=== PATIENT | male | born 1945 | race Caucasian/White ===

== ENCOUNTER 2023-12-11 14:55 | Inpatient (IN) | payer MEDICARE, BC, SELFPAY ==
[2023-12-11 15:18] VITALS: BP 87/49; PULSE 62; RESP 10; TEMP 36.4; O2SAT 99
--- NOTE | 2023-12-11 15:30 | DI.RAD_ITS ---
Exam(s) XR PELVIS AP EXAM: XR PELVIS AP CLINICAL HISTORY: not walking. TECHNIQUE: 2D digital imaging was performed. Single AP view. COMPARISON: No exams were available for comparison FINDINGS: BONES: No gross evidence of acute fracture. The femoral necks are not well profiled. No bony destru ctive lesion is seen. Enthesophytes are noted at the iliac wings. JOINTS: No dislocation present. No joint space narrowing is present. Bilateral acetabular spurring. SI joints and pubic symphysis are not widened. SOFT TISSUE: Prominent vascular calcifications. IMPRESSION: No acute abnormality. Femoral neck regions not well profiled bilaterally and fractures in these re gions are not excluded. DATA REPOSITORY: RADIATION DOSE DELIVERED:
--- NOTE | 2023-12-11 15:30 | DI.CT_ITS ---
Exam(s) CT HEAD WO EXAM: CT HEAD WO CLINICAL HISTORY: generalized weaknes. TECHNIQUE: Imaging Protocol: Axial computed tomography images with coronal and sagittal reformatted images were created and reviewed COMPARISON: CR XR CHEST 1V IN DI DEPT from 12/11/2023 FINDINGS: There are no skull fractures. Mucosal thickening noted in the left maxillary sinus and there is also a surgical defect in the medial wall of the left maxillary sinus. There is no evidence of intracranial hemorrhage, mass effect, or shift of midline structures. There are no extra-axial fluid collections. The ventricles are not enlarged or shifted and there is no blo od within the ventricular system nor within the basal cisterns. IMPRESSION: No acute intracranial findings on this noninfused CT scan of the brain. Left maxillary sinus disease as well as surgical defect noted in the medial wall the left maxillary s inus. Called by myself to ER physician. RADIATION DOSE DELIVERED: 692.4mGy.cm Total DLP DATA REPOSITORY: All CT scans at this facility are submitted to the National Radiology Data Registry (NRDR) Dose Index Registry (DIR) with the [employer] ([employer]). RADIATION OPTIMIZATION: All CT scans at this facility use at least one of these dose optimization te chniques: automated exposure control; mA and/or kV adjustment per patient size (includes targeted exa ms where dose is matched to clinical indication); or iterative reconstruction.
--- NOTE | 2023-12-11 15:30 | DI.RAD_ITS ---
Exam(s) XR CHEST 1V IN DI DEPT EXAM: XR CHEST 1V IN DI DEPT CLINICAL HISTORY: fatigue, weakness TECHNIQUE: 2D digital imaging was performed. COMPARISON: No exams were available for comparison FINDINGS: LUNGS: Prominent fibrotic changes. No gross evidence of focal infiltrate no pleural abnormality seen . HEART: Enlarged. Pacemaker. Status post CABG. AORTA: Normal diameter. BONES: The spine is obscured. Soft tissues: Unremarkable. IMPRESSION: No acute findings. Cardiomegaly and pulmonary fibrotic changes. DATA REPOSITORY: RADIATION DOSE DELIVERED:
[2023-12-11 16:02] LABS: Abs Immature Grans 0.04 10^3/uL (0.0-0.06); Absolute Basophil Count 0.02 10^3/uL (0.0-0.2); Absolute Eosinophil Count 0.05 10^3/uL (0.0-0.7); Absolute Lymphocyte Count 1.48 10^3/uL (1.2-3.4); Absolute Monocyte Count 0.53 10^3/uL (0.1-0.8); Absolute Neutrophil Count 6.19 10^3/uL (1.2-6.7); Basophils % 0.2 %; Eosinophils % 0.6 %; HCT 32.3 % (40.0-50.0); HGB 9.6 g/dL (13.5-17.5); Immature Grans % 0.5 %; Lymphocytes % 17.8 %; MCH 27.7 pg (27.0-33.0); MCHC 29.7 % (32.0-36.0); MCV 93 fL (80-95); MPV 10.5 fL (8.0-11.0); Monocytes % 6.4 %; Neutrophils % 74.5 %; Nucleated RBC 0.2 % (0.0-0.3); Platelet Count 228 10^3/uL (130-400); RBC 3.47 10^6/uL (4.36-5.78); RDW 19.7 % (11.8-14.1); RDW-SD 66.6 fL; WBC 8.31 10^3/uL (4.4-10.8)
[2023-12-11] MEDS: Normal Saline 1,000 ML 1000 ML IV (16:07)
[2023-12-11 16:16] LABS: INR 1.3 (0.9-1.1); PTT Activated 41.7 sec (23.6-32.8); Prothrombin Time 13.1 sec (9.1-11.1)
--- NOTE | 2023-12-11 16:19 | ED.GENADUL_ITS ---
Discharge Plan Disposition Patient Disposition: Admit to [facility] Condition: Stable Discharge Details Chief Complaint: GenMedical Clinical Impression: Dehydration Primary Care Provider: Unknown,Unknown ED Provider: Mendez Prescott Home Meds and New Rx's Prescriptions: No Action allopurinol 300 mg tablet 300 mg PO DAILY amlodipine 5 mg tablet 5 mg PO DAILY atorvastatin [Lipitor] 80 mg tablet 80 mg PO QHS bupropion HCl 100 mg tablet sustained-release 12 hr 200 mg PO DAILY carvedilol 25 mg tablet 25 mg PO BID Rx Instructions: must administer with a meal/food Eliquis 5 mg tablet 5 mg PO BID levothyroxine [Euthyrox] 200 mcg tablet 200 mcg PO DAILY levothyroxine [Euthyrox] 25 mcg tablet 25 mcg PO DAILY lorazepam [Ativan] 1 mg tablet 1 mg PO QHS losartan [Cozaar] 100 mg tablet 100 mg PO DAILY multivit with min-folic acid [One-A-Day Men's Pro Edge] 0.4 mg tablet See Rx Instructions PO .COMPLEX Rx Instructions: orally daily; nitroglycerin [Nitrostat] 0.4 mg tablet, sublingual 0.4 mg sublingual Q5-15M PRN Rx Instructions: do not exceed 3 doses per episode pantoprazole 40 mg tablet,delayed release (DR/EC) 80 mg PO DAILY prednisone 5 mg tablet 5 mg PO DIRECTED Rx Instructions: see taper instructions HPI General Date/Time Provider Initiated Documentation: 12/11/23 15:23 . HPI Narrative: 78-year-old male history of pancreatic cysts requiring pancreatic stenting most recently in September at [place] [facility], presents with decreased appetite, increased nausea evidence of dehydration, follow-up scan approxi-1 month ago showed stent functioning in normal position. Daughter has moved patient up here from [place] to live with her has noticed a functional decline not able to ambulate currently generally weak not taking p.o. Related Data Home Medications Medication Instructions Recorded Confirmed allopurinol 300 mg tablet 300 mg PO DAILY 12/11/23 12/11/23 amlodipine 5 mg tablet 5 mg PO DAILY 12/11/23 12/11/23 apixaban 5 mg tablet (Eliquis) 5 mg PO BID 12/11/23 12/11/23 atorvastatin 80 mg tablet (Lipitor) 80 mg PO QHS 12/11/23 12/11/23 bupropion HCl 100 mg tablet,12 hr 200 mg PO DAILY 12/11/23 12/11/23 sustained-release carvedilol 25 mg tablet 25 mg PO BID 12/11/23 12/11/23 levothyroxine 200 mcg tablet 200 mcg PO DAILY 12/11/23 12/11/23 (Euthyrox) levothyroxine 25 mcg tablet 25 mcg PO DAILY 12/11/23 12/11/23 (Euthyrox) lorazepam 1 mg tablet (Ativan) 1 mg PO QHS 12/11/23 12/11/23 losartan 100 mg tablet (Cozaar) 100 mg PO DAILY 12/11/23 12/11/23 multivitamin with minerals-folic See Rx Instructions PO .COMPLEX 12/11/23 12/11/23 acid 0.4 mg tablet (One-A-Day Men's Pro Edge) nitroglycerin 0.4 mg sublingual 0.4 mg sublingual Q5-15M PRN 12/11/23 12/11/23 tablet (Nitrostat) pantoprazole 40 mg tablet,delayed 80 mg PO DAILY 12/11/23 12/11/23 release prednisone 5 mg tablet 5 mg PO DIRECTED 12/11/23 12/11/23 Allergies Allergy/AdvReac Type Severity Reaction Status Date / Time No Known Allergies Allergy Unverified 12/11/23 15:23 General Stated Complaint: GenMedical MINA: 3 Review of Systems Narrative: Review of Systems Constitutional: Fatigue Eyes: negative ENT: negative Cardiovascular: negative Respiratory: negative Gastrointestinal: negative : negative Musculoskeletal: negative Skin: negative Neurologic: negative Psych: negative Exam Narrative Exam Narrative: Physical Examination General: alert, awake, cooperative HEENT: normocephalic, atraumatic; PERRL, EOM intact, conjunctival pallor; no nasal discharge; dry oral mucosa Neck: supple, trachea midline; full ROM Chest: normal to inspection Respiratory: normal respiratory effort, speaking in full sentences, clear to auscultation, no wheezing, rales or rhonchi Cardiac: regular rate, regular rhythm, S1S2 intact, no murmurs rubs or gallops GI: abdomen soft, non-tender, non-distended; no palpable mass or hep atosplenomegaly Skin: no lesions, rashes or trauma appreciated Neuro: AAOx3, normal speech, moving all extremities Extremities: No peripheral edema Psych: Appropriate mood and affect Course Vital Signs Vital signs: Vital Signs Temperature 36.4 C L 12/11/23 15:18 Pulse 62 12/11/23 15:18 Respiratory Rate 10 L 12/11/23 15:18 Blood Pressure 87/49 L 12/11/23 15:18 Pulse Oximetry 99 12/11/23 15:18 Temperature 36.4 C L 12/11/23 15:18 Temperature Source Oral 12/11/23 15:18 Pulse 62 12/11/23 15:18 Respiratory Rate 10 L 12/11/23 15:18 Blood Pressure 87/49 L 12/11/23 15:18 Blood Pressure Position Sitting 12/11/23 15:18 Pulse Oximetry 99 12/11/23 15:18 Oxygen Delivery Method Room Air 12/11/23 15:18 Oxygen Flow Rate 0 12/11/23 15:18 Pain Level 0 12/11/23 15:18 Lab/Test Results Lab/Test Results: Laboratory Tests Range/Units 12/11/23 15:54 WBC (4.4-10.8) 10^3/uL 8.31 RBC (4.36-5.78) 10^6/uL 3.47 L Hgb (13.5-17.5) g/dL 9.6 L Hct (40.0-50.0) % 32.3 L MCV (80-95) fL 93 MCH (27.0-33.0) pg 27.7 MCHC (32.0-36.0) % 29.7 L RDW (11.8-14.1) % 19.7 H Plt Count (130-400) 10^3/uL 228 MPV (8.0-11.0) fL 10.5 Immature Gran % % 0.5 Neutrophils % % 74.5 Lymphocytes % % 17.8 Monocytes % % 6.4 Eosinophils % % 0.6 Basophils % % 0.2 Nucleated RBC % (0.0-0.3) % 0.2 Absolute Neutrophils (1.2-6.7) 10^3/uL 6.19 Absolute Lymphocytes (1.2-3.4) 10^3/uL 1.48 Absolute Monocytes (0.1-0.8) 10^3/uL 0.53 Absolute Eosinophils (0.0-0.7) 10^3/uL 0.05 Absolute Basophils (0.0-0.2) 10^3/uL 0.02 Medical Decision Making 78-year-old male history of chronic pancreatic cyst, status post pancreatic stenting presents with decreased p.o. intake dehydration fatigue decreased ability to ambulate, was recently moved up here by daughter to live with her due to declining functional status, daughter has noticed even further decline since his arrival, not eating not ambulating. Patient alert oriented interactive moving all extremities without focal deficit, no external signs of trauma, abdomen soft nontender nondistended, afebrile, noted to be hypertense as low as the 70s systolic, dry oral mucosa poor skin turgor conjunctival pallor high clinical suspicion for dehydration versus anemia. Patient's daughter endorses that follow-up scan post repeat pancreatic stent placement in September was normal showing functional stent. Will obtain IV access will obtain basic labs, will provide fluid hydration antiemetics, patient may need transfusion based on examination, admission likely for hydration and potential rehabilitation placement. 19: 19 resting really no acute distress. Labs demonstrating a likely prerenal WILLIAM related to decreased p.o. intake, will continue with fluid hydration no signs of pulmonary edema, soft BPs ranging around 90 systolic likely hypovolemic in nature. CT head and x-ray pelvis unremarkable. Patient was admitted for close monitoring and rehydration Quality:SDOH Health Related Social Needs: No Data to Display PFSH All Active Problems (Updated 12/11/23 @ 19:19 by Mendez Prescott MD) Dehydration (Acute) Social History Smoking/Tobacco Use Status: Never Smoking risk assessment performed?: Yes Alcohol Intake: current Alcohol Intake frequency: holidays/special occasions only Substance use type: does not use
[2023-12-11 16:20] VITALS: RESP 13
[2023-12-11 16:39] LABS: ALT 31 U/L (16-63); AST 28 U/L (15-37); Alkaline Phosphatase 100 U/L (46-116); Anion Gap 12.5 mmol/L (3-11); BUN 76 mg/dL (7-18); Bilirubin, Total 0.54 mg/dL (0.2-1.0); CO2 21.5 mmol/L (21.0-32.0); Calcium 8.1 mg/dL (8.5-10.1); Chloride 98 mmol/L (98-107); Estimated GFR 14.35 (mL/min/1.73m2); Glucose 62 mg/dL (74-106); Magnesium 1.7 mg/dL (1.8-2.4); Potassium 4.2 mmol/L (3.5-5.1); Sodium 132 mmol/L (136-145); Total Protein 6.4 g/dL (6.4-8.2)
[2023-12-11 16:43] LABS: CREATININE 4.1 mg/dL (0.70-1.30)
[2023-12-11] MEDS: DEXTROSE 5%-0.9% SALINE 1,000 ML 50 ML IV (17:05)
[2023-12-11] MEDS: Normal Saline 500 ML 1000 ML IV ×2 (17:24→18:36)
[2023-12-11 19:42] LABS: Lipase 30 U/L (16-77)
--- NOTE | 2023-12-11 19:42 | HPE_ITS ---
Date of service: 12/11/23 Time of Service: 19:42 Assessment and Plan Assessment and plan (1) Weakness: Status: Acute Assessment and plan: Weakness, non-specific, and probably multifactorial. Contributing are dehydration secondary to poor PO; low BP possibly due to continued use of meds (beta rehan, ARB) in setting of dehydration; and possibly an element of depression. At this point I do not see any specific medical precipitant for the chronic anorexia but we may want to re-image the abdomen.I have also asked ER to add on Lipase to labs. WILLIAM/dehydration/ hypotension: IVF, hold ARB, consider hold Coreg; trend renal function, check U/A Anorexia: monitor Weakness: PT consult AF/pacer: CPM (pacer, Eliquis, Coreg) ADs: per ER patient requests DNI History of Present Illness History of Present Illness Chief Complaint: weakness Narrative: 78 male with h/o idiopathic chronic pancreatitis with chronic exocrine insufficiency, has had stenting of pancreatic duct x 2 over the past year. CT 11/20 reportedly shows functioning stent. Has been living in [place] but moved up last week to be with family. Reports over a month of anorexia, without abd pain or vomiting (which were the presenting symptoms of pancreatitis) with progressive generalized weakness to the point now where he can barely get out of bed. Presented today for evaluation which is of note for obvious clinical dehydration and susi azotemia, with BUN 78, Creat 4.1 (baseline 29/1.9). Imaging of note for negative heasd CT; chest CT with pulmonary fibrosis, and negative CT pelvis. Patient has received 2L IVF. I was asked to evaluate for admission. Patient is clear that he has not been having any of the pain or nausea characterizing his prior episodes of pancreatitis. No new meds. He otherwise does have h/o CAD, s/p CABG, s/p pacer, h/o AF for which he is on Eliquis. Denies h/o CHF Review of Systems Narrative: per HPI PFSH All Active Problems (Updated 12/11/23 @ 19:53 by Jayden De La Cruz MD) Weakness (Acute) Dehydration (Acute) Social History Smoking/Tobacco Use Status: Never Smoking risk assessment performed?: Yes Alcohol Intake: current Alcohol Intake frequency: holidays/special occasions only Substance use type: does not use Meds Allergies and Home Medications Allergies Allergy/AdvReac Type Severity Reaction Status Date / Time No Known Allergies Allergy Unverified 12/11/23 15:23 Home Medications Medication Instructions Recorded Confirmed Type allopurinol 300 mg tablet 300 mg PO DAILY 12/11/23 12/11/23 History amlodipine 5 mg tablet 5 mg PO DAILY 12/11/23 12/11/23 History apixaban 5 mg tablet (Eliquis) 5 mg PO BID 12/11/23 12/11/23 History atorvastatin 80 mg tablet (Lipitor) 80 mg PO QHS 12/11/23 12/11/23 History bupropion HCl 100 mg tablet,12 hr 200 mg PO DAILY 12/11/23 12/11/23 History sustained-release carvedilol 25 mg tablet 25 mg PO BID 12/11/23 12/11/23 History levothyroxine 200 mcg tablet 200 mcg PO DAILY 12/11/23 12/11/23 History (Euthyrox) levothyroxine 25 mcg tablet 25 mcg PO DAILY 12/11/23 12/11/23 History (Euthyrox) lorazepam 1 mg tablet (Ativan) 1 mg PO QHS 12/11/23 12/11/23 History losartan 100 mg tablet (Cozaar) 100 mg PO DAILY 12/11/23 12/11/23 History multivitamin with minerals-folic See Rx Instructions PO .COMPLEX 12/11/23 12/11/23 History acid 0.4 mg tablet (One-A-Day Men's Pro Edge) nitroglycerin 0.4 mg sublingual 0.4 mg sublingual Q5-15M PRN 12/11/23 12/11/23 History tablet (Nitrostat) pantoprazole 40 mg tablet,delayed 80 mg PO DAILY 12/11/23 12/11/23 History release prednisone 5 mg tablet 5 mg PO DIRECTED 12/11/23 12/11/23 History Exam Narrative Exam Narrative: 87/49, 62, 36.4, 13, 99% RA. HEENT anicteric; neck supple; lungs clear; heart RRR; abdomen soft and NT; extremities w/o edema; neuro Ox3, lucid, flat affect, moves all 4s, roughly 4+/5 throughout Results Labs 12/11/23 15:54 12/11/23 15:54 Labs: Laboratory Results - last 24 hr 12/11/23 12/11/23 15:54 15:58 WBC 8.31 RBC 3.47 L Hgb 9.6 L Hct 32.3 L MCV 93 MCH 27.7 MCHC 29.7 L RDW 19.7 H Plt Count 228 MPV 10.5 Immature Gran % 0.5 Neutrophils % 74.5 Lymphocytes % 17.8 Monocytes % 6.4 Eosinophils % 0.6 Basophils % 0.2 Nucleated RBC % 0.2 Absolute Neutrophils 6.19 Absolute Lymphocytes 1.48 Absolute Monocytes 0.53 Absolute Eosinophils 0.05 Absolute Basophils 0.02 PT 13.1 H INR 1.3 H APTT 41.7 H Sodium 132 L Potassium 4.2 Chloride 98 Carbon Dioxide 21.5 Anion Gap 12.5 H BUN 76 H Creatinine 4.1 H* Est GFR (CKD-EPI 2020) 14.35 Glucose 62 L Calcium 8.1 L Magnesium 1.7 L Total Bilirubin 0.54 AST 28 ALT 31 Alkaline Phosphatase 100 Total Protein 6.4 Albumin 2.0 L ABO/Rh O Positive Antibody Screen NEGATIVE Last Vital Signs Temp 36.4 C L 12/11/23 15:18 Pulse 62 12/11/23 15:18 Resp 13 12/11/23 16:20 BP 87/49 L 12/11/23 15:18 Pulse Ox 99 12/11/23 15:18 Time Spent Time spent with Patient: 55-74 minutes Time was spent: preparing to see the patient(eg.review tests), obtaining and/or reviewing separately otained hiistory, ordering medications,tests, procedures, referring, communicating with other health team primary care physician and indepentently interpreting results
[2023-12-11 21:25] VITALS: BP 100/54; PULSE 62; RESP 18; TEMP 36.8; O2SAT 98
[2023-12-11 23:15] VITALS: BP 101/53; PULSE 60; RESP 20; TEMP 36.6; O2SAT 96
[2023-12-11] MEDS: Atorvastatin 40 MG TAB 80 MG PO (23:17)
[2023-12-11] MEDS: LORazepam 1 MG TAB PO (23:18)
[2023-12-12] MEDS: Acetaminophen 500 MG TAB 1000 MG PO (03:06)
[2023-12-12] MEDS: oxyCODONE 5 MG TAB PO (04:34)
[2023-12-12 06:27] VITALS: BP 80/52; PULSE 60; RESP 18; TEMP 36.8; O2SAT 89
[2023-12-12 06:45] LABS: Anion Gap 13.9 mmol/L (3-11); BUN 72 mg/dL (7-18); CO2 17.1 mmol/L (21.0-32.0); Calcium 7.9 mg/dL (8.5-10.1); Chloride 105 mmol/L (98-107); Estimated GFR 16.77 (mL/min/1.73m2); Glucose 58 mg/dL (74-106); Potassium 3.9 mmol/L (3.5-5.1); Sodium 136 mmol/L (136-145)
[2023-12-12] MEDS: Normal Saline 250 ML IV (06:45)
[2023-12-12 06:48] LABS: CREATININE 3.6 mg/dL (0.70-1.30)
[2023-12-12 08:17] VITALS: BP 84/58; PULSE 57; RESP 17; TEMP 36.6; O2SAT 97
[2023-12-12 08:34] VITALS: BP 88/46
[2023-12-12] MEDS: Pantoprazole 40 MG TABCR 80 MG PO (10:23)
[2023-12-12] MEDS: Multivitamin w/Minerals TAB 1 TAB PO (10:23)
[2023-12-12] MEDS: predniSONE 5 MG TAB PO (10:23)
[2023-12-12] MEDS: Apixaban 5 MG TAB PO ×2 (10:23→20:01)
[2023-12-12] MEDS: buPROPion-CR 100 MG TABCR 200 MG PO (10:24)
[2023-12-12] MEDS: predniSONE 1 MG TAB 2 MG PO (10:24)
--- NOTE | 2023-12-12 11:39 | PDOC.CMIN ---
Date of service: 12/12/23 Time of Service: 11:39 Care Management Initial Assmt Initial Assessment Reason for Hospitalization: weakness Functional Status/Living Situation Patient Presentation: Gerry was sleeping when CM went to meet with him but his daughter Gladis was present and provided information. Gerry has been living alone in [place] and has been becoming progressively weaker. He has a chronic pancreatic condition which has required stenting. These issues have resulted in pain with eating so Gerry has not been eating as he should. His daughter is considering hospice but has many questions. CM contacted [facility] and made arrangements for a hospice consult at 10 am tomorrow. Gladis is also considering short term rehab for her Dad and requested referrals be sent to [facility], [facility], [facility] and [place]. PT attempted to meet with Gerry 3 times today but he refused each time. The referrals cannot be sent until the PT evaluation is completed. PT will attempt to meet with him again tomorrow. Town of Residence: [place], [place] but currently staying with daughter Gladis in [place]. Resides with: Child (Gladis Padron) Significant Other/Family: Local (some in [place] ands some in [place].) Employment Status: Retired Instrumental Activities of Daily Living (ADLs): Requires support Medications Medication Management: No Issues/Barriers identified Advance Directives Advance Directives: Do you have an Advance Directive: N 08/10/15 14:15 AD On File at [facility]: N 08/10/15 14:15 Date Asked 12/11/23 12/11/23 15:03 AD Date Reviewed COLST On File at [facility] COLST Date Scanned Code Status Resuscitation Status DNI Portal Pt does not currently have a portal and education provided: No Portal Education: Other (from out of state) Insurance Coverage/Financial Issues Insurance: Medicare ACO Member: No Care Team Visit Care Team Role Provider Type Unknown Unknown Primary Care Provider STAFF PHYSICIAN InPatient Bhupendra Jackson Other Providers OTHER Mendez Prescott MD Emergency Provider [facility] STAFF PHYSICIAN Jayden De La Cruz MD Admit Provider [facility] STAFF PHYSICIAN Attending Provider Discharge Potential Discharge Needs: Other (establish with PCP) Anticipated Barriers to Discharge: Other (may need placement) Patient/Family Education Needs: Review discharge instructions, discuss Ask Me Three Transportation: Other (to be determined by disposition) Plan: [facility] discharge plan is unclear. He was admitted with weakness and WILLIAM. He will likely need at least short term rehab prior to returning to his family. A hospice consult has also been requested and is scheduled for 10 am tomorrow.CM will follow and continue to support discharge needs. PFSH All Active Problems (Updated 12/12/23 @ 14:23 by Tucker Rubi MD) Protein calorie malnutrition (Acute) WILLIAM (acute kidney injury) (Acute) Declining functional status (Acute) Weakness (Acute) Dehydration (Acute) Social History Smoking/Tobacco Use Status: Never Smoking risk assessment performed?: Yes Alcohol Intake: current Alcohol Intake frequency: holidays/special occasions only Substance use type: does not use Housing: other SDOH(Care Management) Screening Will the Patient Participate in the Screening?: Yes Do you worry about having a steady place to live?: no Problems where you live: other In the past 12 months, have you had to go without electric, gas, oil or water in your home?: no Have you or anyone in your house had to go without enough food to eat?: no Has lack of transportation kept you from medical appointments or from doing things needed for daily living?: no Has anyone in your support network made you feel unsafe for any reason?: no Social Determinants of Health Comments(SDOH Details): Patient relocated within the last week to be closer to family
--- NOTE | 2023-12-12 11:40 | PGE_ITS ---
Date of Service Date of service: 12/12/23 Time of Service: 14:19 Assessment and Plan Assessment and plan (1) Weakness: Status: Acute Assessment and plan: Weakness, non-specific, and probably multifactorial. Contributing are dehydration secondary to poor PO; low BP possibly due to continued use of meds (beta rehan, ARB) in setting of dehydration; and possibly an element of depression. At this point I do not see any specific medical precipitant for the chronic anorexia but we may want to re-image the abdomen.I have also asked ER to add on Lipase to labs. WILLIAM/dehydration/ hypotension: IVF, hold ARB, consider hold Coreg; trend renal function, check U/A Anorexia: monitor Weakness: PT consult AF/pacer: CPM (pacer, Eliquis, Coreg) ADs: per ER patient requests DNI (2) Declining functional status: Status: Acute Assessment and plan: -has been ongoing for the last year while patient was living in [place] and dealing with chronic pancreatitis that has resulted in pancreas enzyme dysfunction and enzymatic replacement -there is also a likely component of depression that has furthered functional decline and PO intake -apprecaite PT consult and recs -discussed with patients Daughters as noted in subjective section of this note; ongoing discussions with Care Management and meeting with Palliative Care regarding appropriate disposition (3) WILLIAM (acute kidney injury): Status: Acute Assessment and plan: -secondary to poor PO intake as noted above -Cr 4.1 on admission -improved to 3.6 AM 12/11 -will continue IV fluids and check BMP in AM (4) Dehydration: Status: Acute Assessment and plan: -as noted above (5) Protein calorie malnutrition: Status: Acute Assessment and plan: -secondary to chronic panreatitis and pancreatic enzyme replacement in well as poor PO intake as noted above Subjective Subjective Interval history since last seen: Patient resting comfortably in bed in no acute distress, prolonged discussion with the patient's daughter, who is speaking on behalf of and in agreement with her other siblings including sister and brother. They are all aware of the patient's worsening functional decline which is the reason why son-in-law drove patient up from [place] about a week ago. However, his p.o. intake and overall functional status is significantly declined since that time. Overall, discussion centered around appropriate disposition would not be subacute rehab transitioning to long-term or whether or not patient would qualify for hospice services. Patient's daughter expresses willingness to discuss this further with the palliative care team. Exam Narrative Exam Narrative: Fatigued, chronically ill-appearing older gentleman laying in bed in no acute distress, ANO x 4, heart regular rhythm, lungs clear to auscultation bilaterally, abdomen soft, nontender, nondistended Objective Last Vital Signs Temp 97.9 F 12/12/23 08:17 Pulse 57 L 12/12/23 08:17 Resp 17 12/12/23 08:17 BP 88/46 L 12/12/23 08:34 Pulse Ox 97 12/12/23 08:17 Laboratory Results - last 24 hr 12/11/23 12/11/23 12/12/23 15:54 15:58 06:00 WBC 8.31 RBC 3.47 L Hgb 9.6 L Hct 32.3 L MCV 93 MCH 27.7 MCHC 29.7 L RDW 19.7 H Plt Count 228 MPV 10.5 Immature Gran % 0.5 Neutrophils % 74.5 Lymphocytes % 17.8 Monocytes % 6.4 Eosinophils % 0.6 Basophils % 0.2 Nucleated RBC % 0.2 Absolute Neutrophils 6.19 Absolute Lymphocytes 1.48 Absolute Monocytes 0.53 Absolute Eosinophils 0.05 Absolute Basophils 0.02 PT 13.1 H INR 1.3 H APTT 41.7 H Sodium 132 L 136 Potassium 4.2 3.9 Chloride 98 105 Carbon Dioxide 21.5 17.1 L Anion Gap 12.5 H 13.9 H BUN 76 H 72 H Creatinine 4.1 H* 3.6 H* Est GFR (CKD-EPI 2020) 14.35 16.77 Glucose 62 L 58 L Calcium 8.1 L 7.9 L Magnesium 1.7 L Total Bilirubin 0.54 AST 28 ALT 31 Alkaline Phosphatase 100 Total Protein 6.4 Albumin 2.0 L Lipase 30 ABO/Rh O Positive Antibody Screen NEGATIVE Time Spent with Patient Time Spent with Patient: >50 minutes Time was spent: preparing to see the patient(eg.review tests), obtaining and/or reviewing separately otained hiistory, ordering medications,tests, procedures, referring, communicating with other health client care representative, indepentently interpreting results, counseling the patient and care coordination
--- NOTE | 2023-12-12 13:51 | PT.INIE ---
PT Notes Visit Reasons: Weakness, WILLIAM Inpatient Physical Therapy Evaluation Date: 12/12/23 Referring Doctor: Dr. De La Cruz PT Orders: PT CONSULT: exacerbation of chronic condition Precautions: fall Patient Profile/Admitting Diagnosis: Patient is a 78 male who presented to the ER with reports over a month of anorexia, without abd pain or vomiting with progressive generalized weakness to the point now where he can barely get out of bed. He has a h/o idiopathic chronic pancreatitis with chronic exocrine insufficiency, has had stenting of pancreatic duct x 2 over the past year. Social History/Home Situation: [] Current Functional Limitations: [] Equipment Owned/DME: [] Subjective: [] Objective: [] General Observation: [] Mental Status: [] Pain: [] Vital Signs: [] ROM: Right Upper Extremity: [] Left Upper Extremity: [] Right Lower Extremity: [] Left Lower Extremity: [] Strength: Right Upper Extremity: [] Left Upper Extremity: [] Right Lower Extremity: [] Left Lower Extremity: [] Sensation: [] Bed Mobility/Transfers: [] Gait: [] Balance: [] Static Sitting: [] Dynamic Sitting: [] Static Standing: [] Dynamic Standing: [] Special Tests: Mobility Limitations Standardized Measure [facility] AM-PAC 6 clicks Basic Mobility Inpatient Short Form: Raw Score: [] Standardized Score: [] CMS Score: [] Informed Consent/Education: Patient instructed in purpose of PT consult and plan of care. Assessment: Patient is a [] year old [] referred to physical therapy services with the diagnosis of []. Patient presents with clinical signs and symptoms consistent with [], as demonstrated by the following impairment level findings: []. Impairments are contributing to the following functional limitations: AMPAC score. Patient is assessed as a [] Low 19745 [] Moderate 69226 [] High 31116 complexity based on the following: History: [] Examination: [] Presentation: [] Decision Making: [] Goals: Goals X1 week 1. Supine-Sit [] 2. Sit-Supine [] 3. Sit-Stand [] 4. Stand-Sit [] 5. Bed-Chair [] 6. Chair-Bed [] 7. Gait [] 8. Stairs [] 9. Independent with home exercise program [] 10. Balance [] Plan of Care/Treatment Plan: 1-2x/day, 7 days/week x 1 week. Plan of care has been reviewed with the CARPENTER MAINTENANCE providing the service under Physical Therapy direction. Initiate Physical Therapy intervention for strengthening, bed mobility, transfers, gait, stairs, balance training, use of assistive device. DISCHARGE RECOMMENDATIONS: [] [] Home with no services [] [] Home with services [specify] [] Home with outpatient PT [] [] SNF for continued rehabilitation [] [] Retirement Care [] [] SNF versus LTC based on ability to participate and progress [] TREATMENT CODE/TIME: [] Please sign an return this page within 30 days if you agree with the above POC. Thank you! Physician Signature Date [facility] All Active Problems (Updated 12/11/23 @ 21:06 by EMILY ART) Weakness (Acute) Dehydration (Acute)
--- NOTE | 2023-12-12 14:54 | PT.INNT ---
PT Notes Visit Reasons: Weakness, WILLIAM Attempted PT consult x 3 this afternoon. Patient refuses PT consult despite attempts and encouragement. Refuses instruction in bed exercises. States you are not getting me up from this bed. Agrees to consultation tomorrow.
[2023-12-12] MEDS: Lactated Ringers 1,000 ML 80 ML IV (14:59)
[2023-12-12 15:21] VITALS: BP 72/44; PULSE 62; RESP 19; TEMP 36.7; O2SAT 93
[2023-12-12] MEDS: Atorvastatin 40 MG TAB 80 MG PO (20:01)
[2023-12-12] MEDS: LORazepam 1 MG TAB PO (20:01)
[2023-12-12 20:20] VITALS: BP 101/51; PULSE 60; RESP 20; TEMP 36.5; O2SAT 96
[2023-12-12 23:34] VITALS: BP 100/52; PULSE 60; RESP 18; TEMP 36.7; O2SAT 96
[2023-12-13] MEDS: oxyCODONE 5 MG TAB PO (03:03)
[2023-12-13] MEDS: Lactated Ringers 1,000 ML 80 ML IV (03:18)
[2023-12-13] MEDS: Levothyroxine 200 MCG TAB PO (05:25)
[2023-12-13] MEDS: Levothyroxine 25 MCG TAB PO (05:26)
[2023-12-13 07:37] VITALS: BP 96/54; PULSE 60; RESP 19; TEMP 36.6; O2SAT 93
[2023-12-13] MEDS: Pantoprazole 40 MG TABCR PO (08:08)
[2023-12-13] MEDS: predniSONE 1 MG TAB 2 MG PO (09:21)
[2023-12-13] MEDS: predniSONE 5 MG TAB PO (09:21)
[2023-12-13] MEDS: buPROPion-CR 100 MG TABCR 200 MG PO (09:22)
[2023-12-13] MEDS: Multivitamin w/Minerals TAB 1 TAB PO (09:22)
--- NOTE | 2023-12-13 12:05 | W.PM.PROGNOT ---
Date of Service Date of service: 12/13/23 Time of Service: 12:05 Assessment and Plan Assessment and plan (1) Declining functional status: Status: Acute Assessment and plan: -has been ongoing for the last year while patient was living in [place] and dealing with chronic pancreatitis that has resulted in pancreas enzyme dysfunction and enzymatic replacement -there is also a likely component of depression that has furthered functional decline and PO intake -apprecaite PT consult and recs -discussed with patients Daughters as noted in subjective section of this note; ongoing discussions with Care Management and meeting with Palliative Care regarding appropriate disposition (2) WILLIAM (acute kidney injury): Status: Acute Assessment and plan: -secondary to poor PO intake as noted above -Cr 4.1 on admission -improved to 3.6 AM 12/11 -will continue IV fluids and check BMP in AM (3) Dehydration: Status: Acute Assessment and plan: -as noted above (4) Protein calorie malnutrition: Status: Acute Assessment and plan: -secondary to chronic panreatitis and pancreatic enzyme replacement in well as poor PO intake as noted above Subjective Subjective Interval history since last seen: Patient resting comfortably no acute distress. Has expressed willingness to work with PT and potentially go to short-term rehab. Has no complaints or concerns at this time. Exam Narrative Exam Narrative: Fatigued, chronically ill-appearing older gentleman laying in bed in no acute distress, ANO x 4, heart regular rhythm, lungs clear to auscultation bilaterally, abdomen soft, nontender, nondistended Objective Last Vital Signs Temp 97.9 F 12/13/23 07:37 Pulse 60 12/13/23 07:37 Resp 19 12/13/23 07:37 BP 96/54 L 12/13/23 07:37 Pulse Ox 93 12/13/23 07:37 Time Spent with Patient Time Spent with Patient: >50 minutes Time was spent: preparing to see the patient(eg.review tests), obtaining and/or reviewing separately otained hiistory, ordering medications,tests, procedures, referring, communicating with other health care navigator, indepentently interpreting results, counseling the patient and care coordination
--- NOTE | 2023-12-13 13:09 | IN_ITS ---
PT Notes Visit Reasons: Weakness, WILLIAM Physical Therapy Inpatient Initial Evaluation Date: 12/13/2023 Referring Doctor: Jayden De La Cruz MD PT Orders: PT CONSULT: Exacerbation Chronic Cond Precautions: Fall. Standard. Activity as tolerated. Patient Profile/Admitting Diagnosis: Gerry is a 78-year-old male admitted on 12/11/2023 with chief complaints of decreased oral intake, nausea, and generalized weakness. Patient is admitted to acute level of care for management of decline in functional status, acute kidney injury, dehydration, and protein calorie malnutrition. PMHX: All Active Problems (Updated 12/11/23 @ 19:53 by Jayden De La Cruz MD) Weakness (Acute) Dehydration (Acute) Social History/Home Situation: Lives alone in a private home in [place]. Transported by son to daughter's house here in [place]. independent with all aspects of ADLs until two weeks ago when patient significantly deteriorated functionally from food intake decline. Will be staying at daughter's house until he is able to return to prior level of function. Daughter's house has a ramp to enter. Equipment Owned/DME: FWW Subjective: Reported being weak and having no energy but is willing to participate in therapy. MD, son, and daughter extensively spoke with patient and encouraged participation in PT to improve functional level. Objective: General Observation: IV access through L UE. Son Gerry present in room throughout session and assisted with encouarging patient. Mental Status: Alert and oriented as to person, place, time, and purpose. Able to pay attention, focus, and respond appropriately. Pain: None reported Vital Signs: BP 116/63 mmHg, oxygen saturation 96% on RA, adn heart rate 66 bpm after walking 30 feet with walker ROM: Right Upper Extremity: Shoulder Flexion WFL. Shoulder abduction WFL. Elbow flexion WFL. Wrist flexion WFL. Functional opening and closing of hand WFL. Left Upper Extremity: Shoulder Flexion WFL. Shoulder abduction WFL. Elbow flexion WFL. Wrist flexion WFL. Functional opening and closing of hand WFL. Right Lower Extremity: Hip flexion allows up to 110 degrees. Hip abduction WFL. Knee flexion WFL. Ankle dorsiflexion to neutral only. Ankle plantarflexion WFL. Left Lower Extremity: Hip flexion allows up to 110 degrees. Hip abduction WFL. Knee flexion WFL. Ankle dorsiflexion to neutral only. Ankle plantarflexion WFL. Strength: Right Upper Extremity: Shoulder flexors 3/5. Shoulder abductors 4-/5. Elbow flexors 4-/5. Elbow extensors 4-Jose is a bad habit you are doing keep on watching something like that/5. Compounding Technician strong. Left Upper Extremity: Shoulder flexors 3/5. Shoulder abductors 4-/5. Elbow flexors 4-/5. Elbow extensors 4-Jose is a bad habit you are doing keep on watching something like that/5. Compounding Technician strong. Right Lower Extremity: Hip flexors 3-/5. Hip abductors 3-/5. Knee flexors 4-/5. Knee extensors 3/5. Ankle dorsiflexors 3-/5. Ankle plantarflexors 4-/5. Left Lower Extremity: Hip flexors 3-/5. Hip abductors 3-/5. Knee flexors 4-/5. Knee extensors 3/5. Ankle dorsiflexors 3-/5. Ankle plantarflexors 4-/5. Bed Mobility/Transfers: Minimal cueing provided for use of B hands as needed for support, movement sequence, AD management, and posture to reduce fall risk and minimize pain report Rolling minimal assist Supine to sit minimal assist with HOB at 45 degrees Sit to supine minimal assist Sit to stand minimal assist using FWW Stand to sit minimal assist using FWW Bed to toilet seat with minimal assist using FWW Toilet seat to bedside chair minimal assist using FWW Gait: Facilitated safe and the performance of level surface ambulation covering a distance of 30 feet + 30 feet using front wheeled walker with minimal assist of PT and wheelchair follow of nurse to [place] for safety. Step to gait pattern. Step length and step height decreased. Reported fatigue after short activity. Agreed to drinking wild very Boost drink. Verbal cueing provided for posture, head management, and movement sequence. Yara decreased. Balance: Static Sitting: Normal Dynamic Sitting: Normal Static Standing: Fair Dynamic Standing: Fair Special Tests: Mobility Limitations Standardized Measure [facility]-PAC 6 clicks Basic Mobility Inpatient Short Form: Raw Score: 18 CMS Score: 47% deficit 4-Stage Balance Test: Feet together less than 10 seconds Semi-tandem less than 10 seconds Full tandem deferred due to safety reasons One-legged stance deferred due to safety reasons. Informed Consent/Education: Patient was instructed in purpose of PT consult and plan of care. Agreeable to proceed with established PT POC to achieve personal goals. Assessment: Patient will benefit from PT services to regain prior mobility level and will beenfit from subacute rehab to optimize functional mobility level. he currently is assist of 1 using FWW for all mobility ADLs. Patient presents with clinical signs and symptoms consistent with current/admitting diagnoses that have resulted to mobility limitations, gait instability, generalized weakness, and overall ADL decline as demonstrated by the following impairment level findings: 1. Decreased strength to B UE/LE major muscle groups 2. Impaired sitting/standing balance 3. Impaired activity tolerance 4. Limitation of joint range of motion in B hips and ankles 5. Fatigue Impairments are contributing to the following functional limitations: 1. Decline in bed mobility skills 2. Decline in transfer skills 3. Difficulty with ambulation without assistive device and physical assistance 4. Increased completion time for mobility ADL performance 5. Increased risk for falls 6. Difficulty with managing steps alone safely Patient is assessed as a 58470 moderate complexity based on the following: History: 78-year-old male with past medical history as indicated above Examination: Demonstrable impairment in strength, balance, and mobility level with underlying impairments and functional limitations as exhibited above as well as deficit score of 47% utilizing the [facility] Mobility Inpatient Short Form Presentation: Evolving Decision Makin moderate complexity Goals: Goals X1 week 1. Supine-Sit independent 2. Sit-Supine independent 3. Sit-Stand independent 4. Stand-Sit independent with FWW 5. Bed-Chair independent with FWW 6. Chair-Bed independent with FWW 7. Independent gait on level surface with use of FWW for at least 300 feet without report of pain nor dyspnea 8. Independent with home exercise program 9. Good static and dynamic standing balance/tolerance Plan of Care/Treatment Plan: 1-2x/day, 7 days/week x 1 week. Plan of care has been reviewed with the BIG DATA SOFTWARE ENGINEER providing the service under Physical Therapy direction. Initiate Physical Therapy intervention for pain management as needed, strengthening, bed mobility, transfers, gait, stairs, balance training, and use of assistive device. DISCHARGE RECOMMENDATIONS: [] Home with no services [] [] Home with services [specify] [] Home with outpatient PT [] [] SNF for continued rehabilitation [] [] [facility] Care [] [] SNF versus LTC based on ability to participate and progress [] [X] Short-term SNF vs PT based on progress towards goals TREATMENT CODE/TIME: 43641 x 20 minutes for 1 unit, 64702 x 25 minutes for 2 units space (13:09?13:54). Thank you for the opportunity to participate in the care of this patient. Sayda Gee PT, DPT, CLT [facility] [place], [place]
[2023-12-13 13:56] LABS: Bilirubin Small (Negative); Blood Negative (Negative); Clarity Clear (Clear); Glucose Negative (Negative); Ketones Trace mg/dL (Negative); Leukocyte Esterase Negative (Negative); Nitrite Negative (Negative); Urobilinogen 0.2 mg/dL (Up to 0.2); pH 5.5 (5-8)
[2023-12-13] MEDS: Normal Saline Flush 10 ML SYR IVP (14:05)
[2023-12-13 14:31] VITALS: BP 103/60; PULSE 60; RESP 16; O2SAT 98
--- NOTE | 2023-12-13 16:39 | PCNE_ITS ---
Date of service: 12/13/23 Time of Service: 16:39 History of Present Illness Narrative: Gerry was seen in his hospital room with his son present. His son reports that he recently moved in with his sister/Gerry's daughter in [place]. The plan was for him to be with family due to his decline prior to the move. He is less mobile, taking less PO, losing weight. There was discussion re: possibly considering hospice. However, he is clear that his goal is to walk again. He was evaluated by PT today. PT recommends HH PT vs SNF for rehab. He is clear that this is what he wants at this point. Reviewed CODE status- he is clear that he does not want to be intubated. He would be agreeable to attempts to restart his heart. He will need further discussion over time on this. His dinner came during the visit and he preferred to end the visit so he could eat. He said his meals have been interrupted all day. Offered outpatient f/u, which they agree to. Assessment and Plan Assessment and plan (1) Declining functional status: Status: Acute Assessment and plan: Has been ongoing for the last year prior to move with daughter in [place]. In the setting of chronic pancreatitis. There was question of hospice eligibility, however, he was evaluated by PT today and they recommended HH PT vs SNF. He is clear that his goal is to walk. Palliative can continue to follow as an outpatient to determine if he is improving vs showing further decline. (2) WILLIAM (acute kidney injury): Status: Acute Assessment and plan: Secondary to poor PO intake prior to admission. He is on IVF. (3) Protein calorie malnutrition: Status: Acute Assessment and plan: In the setting of chronic pancreatitis and exocrine pancreatic insufficiency as well as poor PO intake. He has reportedly been losing weight (unclear how much weight he has lost). Monitor. (4) Anemia: Status: Chronic (5) Encounter for palliative care: Status: Acute Assessment and plan: Gerry was seen in his hospital room with his son present. There was question of possible consideration for hospice, however, he is clear that he wants to walk. He worked with PT today, as above. PT recommends SNF vs home with HH PT. It appears family prefers placement at this time. He is clear he does not want to be on a ventilator. He is not ready to state that he does not want resuscitation. He agrees to Palliative f/u. Continue to follow and review goals and CODE STATUS. F/u outpatient in 1-2 months. Review of Systems Narrative: Feeling better. PFSH All Active Problems (Updated 12/17/23 @ 10:44 by Bhavya Jewell NP) Encounter for palliative care (Acute) Hypomagnesemia (Acute) Anemia (Chronic) Pulmonary fibrosis, postinflammatory (Acute) Protein calorie malnutrition (Acute) WILLIAM (acute kidney injury) (Acute) Declining functional status (Acute) Weakness (Acute) Dehydration (Acute) Medical History Paroxysmal atrial fibrillation COPD (chronic obstructive pulmonary disease) Peripheral arterial disease Heart disease Pancreatic pseudocyst/cyst Depression Gout Chronic kidney disease Hypothyroid Surgical History S/P placement of cardiac pacemaker S/P CABG (coronary artery bypass graft) Social History Smoking/Tobacco Use Status: Never Smoking risk assessment performed?: Yes Alcohol Intake: current Alcohol Intake frequency: holidays/special occasions only Substance use type: does not use Housing: other Exam Narrative Exam Narrative: General: pleasant, elderly man, laying in bed with HOB elevated. He is awake and alert, he answers some questions with brief answers. He looks to his son to answer a lot of questions for him. HEENT: normocephalic, atraumatic, EOMI, mmm. Neck: supple Respiratory: respirations appear even and unlabored at rest. Extremities: moving BUE freely in bed. Gait not assessed. Results Last Vital Signs Temp 36.6 C 12/13/23 07:37 Pulse 60 12/13/23 14:31 Resp 16 12/13/23 14:31 BP 103/60 12/13/23 14:31 Pulse Ox 98 12/13/23 14:31 Labs 12/14/23 14:45 12/15/23 12:25 Labs: Laboratory Results - last 24 hr 12/13/23 12/13/23 13:11 13:46 Sodium Cancelled Potassium Cancelled Chloride Cancelled Carbon Dioxide Cancelled Anion Gap Cancelled BUN Cancelled Creatinine Cancelled Est GFR (CKD-EPI 2020) Cancelled Glucose Cancelled Calcium Cancelled Urine Color Yellow Urine Clarity Clear Urine pH 5.5 Ur Specific [place] 1.020 Urine Protein Negative Urine Ketones Trace H Urine Blood Negative Urine Nitrite Negative Urine Bilirubin Small H Urine Urobilinogen 0.2 Ur Leukocyte Esterase Negative Urine Glucose Negative
[2023-12-13 20:10] VITALS: BP 106/55; PULSE 63; RESP 16; TEMP 37.2; O2SAT 96
[2023-12-13] MEDS: Atorvastatin 40 MG TAB 80 MG PO (20:33)
[2023-12-13] MEDS: Apixaban 5 MG TAB PO (20:33)
[2023-12-13] MEDS: LORazepam 1 MG TAB PO (22:22)
[2023-12-13 23:42] VITALS: BP 104/54; PULSE 60; RESP 19; TEMP 36.4; O2SAT 96
[2023-12-14] MEDS: Levothyroxine 200 MCG TAB PO (06:20)
[2023-12-14] MEDS: Levothyroxine 25 MCG TAB PO (06:20)
[2023-12-14 08:03] VITALS: BP 111/63; PULSE 60; RESP 16; TEMP 36.8; O2SAT 97
--- NOTE | 2023-12-14 09:01 | PT.INTREAT ---
PT Notes Visit Reasons: Weakness, WILLIAM Date: 12/14/23 PRECAUTIONS: Fall. Standard. Activity as tolerated. SUBJECTIVE: Pt in bbed when approached for therapy this morning, agreed to participating with session. OBJECTIVE: ? PAIN: none reported VITALS: closely monitored by nursing Therapeutic Activities 44528: Direct one-on-one instruction in dynamic activities to improve functional performance. ?? BED MOBILITY/TRANSFERS? Rolling L/R: min A Supine-sit: ?CGA ? Sit-supine: ?supervision ? Sit-stand: ? ?SBA ? Stand-sit: ??SBA ? Bed-Chair:? ?CGA? Chair-bed: CGA Provided skilled cues and instruction on performance and technique throughout. Gait Training 79173: Direct one-on-one instruction and skilled instruction in: Employing an assistive device Modified weight-bearing status Movement sequencing Turning and movement with proper form Provided verbal cues for equipment management and technique Provided instruction in gait pattern Patient education regarding pacing and breathing techniques to maximize activity tolerance? GAIT? Assistive Device: ?FWW ? Weight bearing: FWB Assist: ?CGA ? Distance:?? 60'x2, 30'x2 ? Deviation: ? Step length and step height decreased. Reported fatigue after short activity. Verbal cueing provided for posture, head management, and movement sequence. Decreased sondra speed.? STAIRS:? 4x3, 6x2 Bilateral handrail step to gait pattern ? Therapeutic Exercises 40674: Direct one-on-one instruction in therapeutic exercises to develop strength, endurance, range of motion and flexibility. Exercises Seated LAQ [id number] Seated SAQ [id number] Seated marching [id number] Sit to stand [id number] Provided skilled instruction in proper exercise performance Provided skilled manual cues to facilitate proper muscle recruitment and/or form: ASSESSMENT:?Pt tolerated activity well, pt required verbal cue for safety with transfers and technique for ease with activity. stayed in bed after session. PLAN: Continue with balance training, global strengthening and general conditioning for improved safety, mobility and activity tolerance until pt is ready for DC. TREATMENT CODE/TIME: 51813y1 [id number] 30mins (8:30-9:00am)
[2023-12-14] MEDS: Apixaban 5 MG TAB PO ×2 (09:21→19:40)
[2023-12-14] MEDS: buPROPion-CR 100 MG TABCR 200 MG PO (09:21)
[2023-12-14] MEDS: Pantoprazole 40 MG TABCR PO (09:22)
[2023-12-14] MEDS: predniSONE 1 MG TAB 2 MG PO (09:22)
[2023-12-14] MEDS: Carvedilol 25 MG TAB PO (09:22)
[2023-12-14] MEDS: Multivitamin w/Minerals TAB 1 TAB PO (09:22)
[2023-12-14] MEDS: predniSONE 5 MG TAB PO (09:22)
[2023-12-14 15:03] LABS: HCT 27.7 % (40.0-50.0); HGB 8.4 g/dL (13.5-17.5); MCH 27.2 pg (27.0-33.0); MCHC 30.3 % (32.0-36.0); MCV 90 fL (80-95); Platelet Count 168 10^3/uL (130-400); RBC 3.09 10^6/uL (4.36-5.78); RDW 19.9 % (11.8-14.1); RDW-SD 64.3 fL; WBC 7.13 10^3/uL (4.4-10.8)
[2023-12-14 15:15] LABS: Anion Gap 11.2 mmol/L (3-11); BUN 66 mg/dL (7-18); CO2 19.8 mmol/L (21.0-32.0); Calcium 8.1 mg/dL (8.5-10.1); Chloride 106 mmol/L (98-107); Estimated GFR 24.78 (mL/min/1.73m2); Glucose 154 mg/dL (74-106); Potassium 3.6 mmol/L (3.5-5.1); Sodium 137 mmol/L (136-145)
[2023-12-14 15:21] LABS: CREATININE 2.6 mg/dL (0.70-1.30)
[2023-12-14 15:28] LABS: Magnesium 1.4 mg/dL (1.8-2.4)
[2023-12-14 15:43] VITALS: BP 104/58; PULSE 61; RESP 17; TEMP 37; O2SAT 95
--- NOTE | 2023-12-14 16:16 | W.PM.PROGNOT ---
Date of Service Date of service: 12/14/23 Time of Service: 16:17 Assessment and Plan Assessment and plan (1) Declining functional status: Status: Acute Assessment and plan: -has been ongoing for the last year while patient was living in [place] and dealing with chronic pancreatitis that has resulted in pancreas enzyme dysfunction and enzymatic replacement -there is also a likely component of depression that has furthered functional decline and PO intake, try mirtazipine. -He has an extensive medical history including psych, cardiac, chronic steroids, and hypothyroid and we don't have many details, try to get more records from [place]. -Recheck TSH with next labs. -try cutting metoprolol dose to improve energy as BP is running low -appreciate PT consult -discussed with patients' family; ongoing discussions with Care Management and meeting with Palliative Care regarding appropriate disposition. Likely SNF to work with PT. (2) WILLIAM (acute kidney injury): Status: Acute Assessment and plan: -secondary to poor PO intake as noted above -Cr 4.1 on admission, we don't know baseline but has CKD per son. -improved to 2.6 on 12/13 with hydration, now off IV fluids. (3) Protein calorie malnutrition: Status: Acute Assessment and plan: -secondary to chronic pancreatitis and exocrine pancreatic insufficiency as well as poor PO intake -can resume home pancreatic enzymes (4) Pulmonary fibrosis, postinflammatory: Status: Acute Assessment and plan: exam with some dry rales c/w chest x-ray on admission. Should have evaluation as outpatient if this hasn't been already worked up (5) Anemia: Status: Chronic Assessment and plan: Normocytic, likely CKD component but multifactorial. With poor nutrition status should have B12 and iron/tibc levels with next lab draw. No signs of acute blood loss. On MVI so getting folate. (6) Hypomagnesemia: Status: Acute Assessment and plan: With loose stool, replace IV Subjective Subjective Patient reports: no new complaints; denies blood in stool or fever Interval history since last seen: Events: Patient worked with PT this morning Denies pain, just feels generally tired and weak. He does cough, no change. Some nausea after eating a lot, none now. No vomiting. Still loose stools 2-3/day. Takes pancreatic enzymes at home. He did eat but not a lot, drinking boost. Exam Narrative Exam Narrative: Tired appearing, chronically ill-appearing older gentleman laying in bed in no acute distress, ANO x 4, heart regular rhythm with 1/6 systolic murmur at RUSB, no radiation. Lungs clear to auscultation bilaterally except mild dry rales more on left. abdomen active BS, soft, nontender, nondistended. Extremities no cyanosis or edema. Objective Last Vital Signs Temp 37.0 C 12/14/23 15:43 Pulse 61 12/14/23 15:43 Resp 17 12/14/23 15:43 BP 104/58 L 12/14/23 15:43 Pulse Ox 95 12/14/23 15:43 Laboratory Results - last 24 hr 12/14/23 14:45 WBC 7.13 RBC 3.09 L Hgb 8.4 L Hct 27.7 L MCV 90 MCH 27.2 MCHC 30.3 L RDW 19.9 H Plt Count 168 MPV 10.0 Sodium 137 Potassium 3.6 Chloride 106 Carbon Dioxide 19.8 L Anion Gap 11.2 H BUN 66 H Creatinine 2.6 H D Est GFR (CKD-EPI 2020) 24.78 Glucose 154 H Calcium 8.1 L Magnesium 1.4 L Time Spent with Patient Time Spent with Patient: >50 minutes Time was spent: preparing to see the patient(eg.review tests), obtaining and/or reviewing separately otained hiistory, ordering medications,tests, procedures, referring, communicating with other health direct care professional, indepentently interpreting results and counseling the patient
[2023-12-14] MEDS: Normal Saline Flush 10 ML SYR IVP ×2 (17:14→19:38)
[2023-12-14] MEDS: MAGNESIUM SULFATE 2 GM/50 ML BAG IVINF (17:14)
[2023-12-14 19:30] VITALS: BP 111/58; PULSE 60; RESP 16; TEMP 36.7; O2SAT 95
[2023-12-14] MEDS: Atorvastatin 40 MG TAB 80 MG PO (19:39)
[2023-12-14] MEDS: Carvedilol 25 MG TAB 12.5 MG PO (19:40)
[2023-12-14] MEDS: Mirtazapine 15 MG TAB 7.5 MG PO (19:51)
[2023-12-14] MEDS: LORazepam 1 MG TAB PO (21:31)
[2023-12-15] MEDS: Pantoprazole 40 MG TABCR PO (06:36)
[2023-12-15] MEDS: Levothyroxine 200 MCG TAB PO (06:36)
[2023-12-15] MEDS: Levothyroxine 25 MCG TAB PO (06:36)
[2023-12-15 07:43] VITALS: BP 129/65; PULSE 60; RESP 17; TEMP 36.5; O2SAT 95
[2023-12-15] MEDS: Carvedilol 25 MG TAB 12.5 MG PO ×2 (08:28→20:15)
[2023-12-15] MEDS: buPROPion-CR 100 MG TABCR 200 MG PO (08:28)
[2023-12-15] MEDS: predniSONE 5 MG TAB PO (08:28)
[2023-12-15] MEDS: Multivitamin w/Minerals TAB 1 TAB PO (08:28)
[2023-12-15] MEDS: predniSONE 1 MG TAB 2 MG PO (08:28)
[2023-12-15] MEDS: Apixaban 5 MG TAB PO ×2 (08:28→20:15)
--- NOTE | 2023-12-15 10:29 | PT.INTREAT ---
PT Notes Visit Reasons: Weakness, WILLIAM Date: 12/15/23 PRECAUTIONS: Fall. Standard. Activity as tolerated. SUBJECTIVE: Pt sleeping in bed when approached for therapy this morning, Inquired with nursing if it was ok to wake pt up since yesterday pt reported he was having a difficult time sleeping and would not want to interrupt sleep if the pt was not able to sleep well last night, as per nursing pt slept well and would be ok to participate with session, pt reports that he slept well last night and is feeling tired today but wiould like to walk and exercise. OBJECTIVE: ? PAIN: none reported VITALS: closely monitored by nursing Therapeutic Activities 00904: Direct one-on-one instruction in dynamic activities to improve functional performance. ?? BED MOBILITY/TRANSFERS? Rolling L/R: min A Supine-sit: ?min A ? Sit-supine: ?min A? Sit-stand: ? ?CGA ? Stand-sit: ??CGA ? Bed-Chair:? ?CGA? Chair-bed: CGA Provided skilled cues and instruction on performance and technique throughout. Gait Training [id number]: Direct one-on-one instruction and skilled instruction in: Employing an assistive device Modified weight-bearing status Movement sequencing Turning and movement with proper form Provided verbal cues for equipment management and technique Provided instruction in gait pattern Patient education regarding pacing and breathing techniques to maximize activity tolerance? GAIT? Assistive Device: ?FWW ? Weight bearing: FWB Assist: ?CGA ? Distance:?? 60'x2, 30'x2 ? Deviation: ? Step length and step height decreased. Reported fatigue after short activity. Verbal cueing provided for posture, head management, and movement sequence. Decreased sondra speed.? ASSESSMENT:?pt requested to go to the toilet prior to gait training on the way out of the room, pt requiring verbal cue for hand placement during toilet transfers for safety, min A for sit to stand from toilet seat, pt reports fatigue after toilet transfer and was only able to complete similar distance for gait distance, refusing further engagement and requesting to go back in bed post session to rest. PLAN: Continue with balance training, global strengthening and general conditioning for improved safety, mobility and activity tolerance until pt is ready for DC. TREATMENT CODE/TIME: [id number] 30mins (10:00-10:30am)
--- NOTE | 2023-12-15 10:55 | W.PM.PROGNOT ---
Date of Service Date of service: 12/15/23 Time of Service: 10:55 Assessment and Plan Assessment and plan (1) Declining functional status: Status: Acute Assessment and plan: -has been ongoing for the last year while patient was living in [place] and dealing with chronic pancreatitis that has resulted in pancreas enzyme dysfunction and enzymatic replacement -there is also a likely component of depression that has furthered functional decline and PO intake, see below. -He has an extensive medical history including psych, cardiac, chronic steroids, and hypothyroid and we don't have many details, trying to get more records from [place]. -Recheck TSH pending. -Carvedilol dose reduced from 25mg to 12.5mg BID to improve energy as BP has been running low -appreciate PT consult, continue to work with PT. -discussed with patients' family; ongoing discussions with Care Management and meeting with Palliative Care regarding appropriate disposition. Likely SNF to work with PT. (2) WILLIAM (acute kidney injury): Status: Acute Assessment and plan: -secondary to poor PO intake as noted above -Cr 4.1 on admission, we don't know baseline but has CKD per son. -improved to 2.6 on 12/13 with hydration, now off IV fluids, repeat pending. -Getting records from [place] to define his baseline. (3) Protein calorie malnutrition: Status: Acute Assessment and plan: -secondary to chronic pancreatitis and exocrine pancreatic insufficiency as well as poor PO intake -can resume home pancreatic enzymes, home Creon resumed. (4) Pulmonary fibrosis, postinflammatory: Status: Acute Assessment and plan: exam with some dry rales c/w chest x-ray on admission. He is not hypoxic or in respiratory distress. Should have evaluation as outpatient if this hasn't been already worked up, home records pending. (5) Anemia: Status: Chronic Assessment and plan: Normocytic, likely CKD component but multifactorial. With poor nutrition status ordered B12 and iron/tibc levels today. No signs of acute blood loss. On MVI so getting folate. (6) Hypomagnesemia: Status: Acute Assessment and plan: With loose stool, replaced IV, follow (7) Hypothyroid: Assessment and plan: getting high dose supplement, get TSH with labs (8) Depression: Assessment and plan: he is on buproprion and lorazepam. I changed lorazepam to prn as this medication raises risk of fall and cognitive impairment. I added scheduled mirtazipine to help with sleep and appetite, but he still asked for lorazepam last night. (9) Heart disease: Assessment and plan: We are requesting records from [place] to clarify cardiac/vascular history. If he hasn't had a recent echocardiogram, I think prudent to repeat echocardiogram given his generalized weakness and softer blood pressures despite holding some of his home antihypertensives. (10) COPD (chronic obstructive pulmonary disease): Assessment and plan: per daughter uses tiotropium at home, resume. Subjective Subjective Patient reports: no new complaints; denies diarrhea, nausea, vomiting or fever Interval history since last seen: He worked with PT this morning, did okay, but did not do the stairs like he did yesterday. He has been eating, but not at lot. No having abdominal, chest, or other pain. Exam Narrative Exam Narrative: Tired appearing, chronically ill-appearing older gentleman sitting up on side of bed in no acute distress, ANO x 4, heart regular rhythm with 1/6 systolic murmur at RUSB, no radiation. Lungs clear to auscultation bilaterally except mild dry rales in left base. abdomen active BS, soft, nontender, nondistended. Extremities no cyanosis or edema. Objective Last Vital Signs Temp 36.5 C 12/15/23 07:43 Pulse 60 12/15/23 07:43 Resp 17 12/15/23 07:43 BP 129/65 12/15/23 07:43 Pulse Ox 95 12/15/23 07:43 Laboratory Results - last 24 hr 12/14/23 14:45 WBC 7.13 RBC 3.09 L Hgb 8.4 L Hct 27.7 L MCV 90 MCH 27.2 MCHC 30.3 L RDW 19.9 H Plt Count 168 MPV 10.0 Sodium 137 Potassium 3.6 Chloride 106 Carbon Dioxide 19.8 L Anion Gap 11.2 H BUN 66 H Creatinine 2.6 H D Est GFR (CKD-EPI 2020) 24.78 Glucose 154 H Calcium 8.1 L Magnesium 1.4 L Time Spent with Patient Time Spent with Patient: 35-49 minutes Time was spent: preparing to see the patient(eg.review tests), obtaining and/or reviewing separately otained hiistory, ordering medications,tests, procedures, referring, communicating with other health health care coordinator, indepentently interpreting results, counseling the patient and care coordination
[2023-12-15] MEDS: Tiotropium Bromide-Respimat 10 PUFF INH 2 PUFF IH (11:39)
[2023-12-15 13:04] LABS: Iron 15 ug/dL (65-175); Total Iron Binding Capacity 111 ug/dL (250-450); Transferrin Sat 14 % (20-55)
[2023-12-15 13:20] LABS: BUN 63 mg/dL (7-18); CREATININE 2.4 mg/dL (0.70-1.30); Calcium 8.5 mg/dL (8.5-10.1); Chloride 107 mmol/L (98-107); Estimated GFR 27.28 (mL/min/1.73m2); Ferritin 385 ng/mL (26-388); Glucose 117 mg/dL (74-106); Magnesium 1.9 mg/dL (1.8-2.4); Potassium 3.9 mmol/L (3.5-5.1); Sodium 139 mmol/L (136-145); TSH (W/Ref FT4) 16.57 uIU/mL (0.36-3.74); Vitamin B12 1196 pg/mL (193-986)
[2023-12-15 13:42] LABS: FREE T4 1.43 ng/dL (0.76-1.46)
[2023-12-15 16:07] VITALS: BP 123/63; PULSE 60; RESP 18; TEMP 36.9; O2SAT 97
[2023-12-15 19:55] VITALS: BP 126/62; PULSE 61; RESP 22; TEMP 36.7; O2SAT 97
[2023-12-15] MEDS: Normal Saline Flush 10 ML SYR IVP (20:14)
[2023-12-15] MEDS: Mirtazapine 15 MG TAB 7.5 MG PO (20:14)
[2023-12-15] MEDS: Atorvastatin 40 MG TAB 80 MG PO (20:15)
--- NOTE | 2023-12-16 | DI.US_ITS ---
APPROVED REPORT EXAM: Comprehensive 2D, Doppler, and color-flow Echocardiogram Patient Location: In-Patient Room/Bed: 226 [address] Machine Operator: Carmenza Silver RDCS (AE) Indications: CAD. weakness. Lung rales Low BP Other Information Study Quality: Adequate Conclusion Normal left ventricular wall thickness and chamber size. Ejection fraction is 50 to 55%. Septal mot ion is consistent with RV pacing Normal right ventricular size and function Left atrium is moderately dilated. Right atrium is moderately dilated Device lead noted in the right heart Aortic valve is calcified with mild stenosis. Peak gradient is 31, mean 19 mmHg. Calculated aortic valve area is 1.3 cm??. There is trace aortic regurgitation Normal mitral valve with moderate regurgitation Normal tricuspid valve with mild regurgitation. Estimated right ventricular systolic pressure is 40 mmHg Wall motion Left Ventricle The left ventricle is normal size. The left ventricular systolic function is normal. The left ventric ular ejection fraction is within the normal range. There is normal left ventricular wall thickness. T here is normal LV segmental wall motion. There is no ventricular septal defect visualized. LVEF is 52 %. Right Ventricle The right ventricle is normal size. The right ventricular systolic function is normal. Atria Left atrium is moderately dilated. Right atrium is moderately dilated. The interatrial septum is inta ct with no evidence for an atrial septal defect. Aortic Valve Aortic valve is calcified. Number of aortic valve leaflets could not be assessed. Mild aortic stenosi s. Peak aortic valve gradient is 31.3mmHg. Highest mean aortic valve gradient is 18.86mmHg. Calculate d ALEXANDRE by the continuity equation is 1.3cm2. Trace aortic regurgitation. Mitral Valve The mitral valve is normal in structure. No evidence of mitral valve stenosis. Moderate mitral regurg itation. Tricuspid Valve The tricuspid valve is normal in structure. There is no tricuspid valve stenosis. Mild tricuspid regu rgitation. The RVSP is 40.2_ mmHg. Pulmonic Valve The pulmonary valve is normal in structure. There is no pulmonic valvular stenosis. Trace pulmonic re gurgitation. Great Vessels The aortic root is normal in size. The ascending aorta is normal in size. Aortic arch is normal in ca liber. The IVC collapses <50% with inspiration. Pericardium There is no pericardial effusion. 2D Dimensions IVSD d PLAX 0.93 cm M: 0.6-1.2 Ao Root d 2.93 cm M: 3.1 - 3.7 LVPW d PLAX 0.90 cm M: 0.6 - 1.2 Ao Asc Diam d 2.83 cm M: 2.6 - 3.4 LVID d PLAX 4.25 cm M: 4.2 - 5.8 LVDs 3.11 cm M: 2.5 - 4.0 LV EF Teichholz 52.7 % FS 26.79 % LV EDV (Teich) 81.0 mL LV ESV (Teich) 38.4 mL Auto EF LV EDV A4C 130.8 mL LV EDV A2C 153.5 mL LV EDV BP 141.9 mL LV ESV A4C 63.0 mL LV ESV A2C 72.9 mL LV ESV BP 67.9 mL LVEF(%) A4C 51.8 % LVEF(%) A2C 52.5 % LVEF(%) BP 52.2 % LV SV A4C 67.8 ml LV SV A2C 80.6 ml LV SV BP 74.1 ml LV CO A4C 4.2 L/min LV CO A2C 4.9 L/min LV CO BP 4.6 L/min HR A4C 62.29 BPM HR A2C 61.12 BPM LV EDV Index (BP) LA Volume LA Length A4C 6.9 cm LA Length A2C 7.3 cm LA Area A4C s 28.38 cm2 LA Area A2C s 28.96 cm2 LA Vol A4C A-L 99.80 mL LA Vol A2C A-L 96.99 mL LA Vol Biplane A-L 101.8 mL LA Vol/BSA A4C A-L LA Vol/BSA A2C A-L LA Vol/BSA BP A-L 42.4 mL/m2 LA Vol A4C MOD 93.0 mL LA Vol A2C MOD 92.3 mL LA Vol BP MOD 95.7 mL RA Volume RA Area A4C 22.9 cm2 RA ESV A4C (A-L) 79.4mL RA Vol/BSA A4C A-L RA Length A4C 5.6 cm RA ESV A4C (MOD) 72.6mL LV Diastology MV E' medial 0.092 (>0.07 m/s) MV E Vmax 0.99 (0.4-1.3 m/s) MV E' lateral 0.055 (>0.1 m/s) Aortic Valve AoV Vmax 2.80 m/s LVOT Vmax 1.06 m/s AoV Peak Grad 47.2 mmHg LVOT Peak Grad 4.5 mmHg AoV Area (Vmax) 1.35 cm2 LVOT VTI 0.233 m AoV VTI 0.628 m LVOT Mean Grad 2.8 mmHg AoV Mean Bowen. 2.09 m/s LVOT SV 82.66 mL AoV Mean Grad 18.9 mmHg LVOT Diam s 2.10 cm AoV Area (VTI) 1.32 cm2 AV Regurg Peak Gr. 63.10 mmHg Velocity Ratio 0.38 AR Decel Crawford 0.9m/sec2 AR DT 4279 msec AR PHT 1241 msec AR Vmax 3.97 m/s Mitral Valve MV Vmax TIPS 1.08 m/s MV Mean Grad 1.3 (<2mmHg) MV PHT 45 msec MV Area PHT 4.90 cm2 MV VTI 0.279 m Pulmonary Valve PV Vmax 1.34 (0.5-1.5 m/s) RVOT Vmax 0.56 m/s PV Peak Grad 7.2 mmHg RVOT Peak Gr. 1.2 mmHg PV Mean Bowen 0.76 m/s RVOT VTI 0.096 m PV Mean Grad 2.9 mmHg RVOT Mean Gr. 0.7 mmHg Tricuspid Valve RA Pressure 8.00 mmHg TR Vmax 2.84 m/s TV S' 0.10 m/s TR Peak Grad 32.1 mmHg RVSP (TR) 40.2 mmHg
[2023-12-16] MEDS: Levothyroxine 25 MCG TAB PO (05:43)
[2023-12-16] MEDS: Levothyroxine 200 MCG TAB PO (05:43)
[2023-12-16 07:24] VITALS: BP 116/64; PULSE 60; RESP 17; TEMP 37.2; O2SAT 95
[2023-12-16] MEDS: predniSONE 1 MG TAB 2 MG PO (07:41)
[2023-12-16] MEDS: Pantoprazole 40 MG TABCR PO (07:42)
[2023-12-16] MEDS: Multivitamin w/Minerals TAB 1 TAB PO (07:42)
[2023-12-16] MEDS: buPROPion-CR 100 MG TABCR 200 MG PO (07:42)
[2023-12-16] MEDS: Carvedilol 25 MG TAB 12.5 MG PO (07:43)
[2023-12-16] MEDS: Apixaban 5 MG TAB PO ×2 (07:44→20:31)
[2023-12-16] MEDS: predniSONE 5 MG TAB PO (07:44)
[2023-12-16] MEDS: Tiotropium Bromide-Respimat 10 PUFF INH 2 PUFF IH (09:22)
[2023-12-16] MEDS: Normal Saline Flush 10 ML SYR IVP ×3 (10:20→12:02)
[2023-12-16] MEDS: IRON SUCROSE COMPLEX 300 MG in Normal Saline 250 ML 167 MG IVPB (10:20)
--- NOTE | 2023-12-16 11:30 | PHA.REVIEW2 ---
Pharmacy Admission Review Admission Clinical Review Admission Pharmacy Review: Hypomagnesemia (Acute) Pulmonary fibrosis, postinflammatory (Acute) Protein calorie malnutrition (Acute) WILLIAM (acute kidney injury) (Acute) Declining functional status (Acute) Weakness (Acute) Dehydration (Acute) No Known Allergies Allergy (Unverified 12/11/23 15:23) Resuscitation Status DNI Height 5 ft 5 in Weight 65.3 kg Pharmacy Admission Review Renal Dosing Renal Dosing: BUN 63 mg/dL (7-18) H 12/15/23 12:25 Creatinine 2.4 mg/dL (0.70-1.30) H 12/15/23 12:25 Medications needing adjustments: Reviewed (CrCl 24 mL/min) List of meds needing interventions: Current medications are okay Anticoagulation Anticoagulation: Hgb 8.4 g/dL (13.5-17.5) L 12/14/23 14:45 Hct 27.7 % (40.0-50.0) L 12/14/23 14:45 Plt Count 168 10^3/uL (130-400) 12/14/23 14:45 INR 1.3 (0.9-1.1) H 12/11/23 15:54 Creatinine 2.4 mg/dL (0.70-1.30) H 12/15/23 12:25 DVT Prophylaxis: Reviewed Medications: Apixaban (5mg po BID) Opiate Usage Evaluate Pain Scale/Pains Meds: Reviewed (PRN orxycodone - 2 tablets given so far) Scheduled Bowel Reg ordered if on Opiates?: No Relevant Labs Relevant Labs: Sodium 139 mmol/L (136-145) 12/15/23 12:25 Potassium 3.9 mmol/L (3.5-5.1) 12/15/23 12:25 Chloride 107 mmol/L (98-107) 12/15/23 12:25 Magnesium 1.9 mg/dL (1.8-2.4) 12/15/23 12:25 Electrolytes, C-Reactive P, ESR: Reviewed (No new labs for today) Cardiac Review BP, HR, EF%: Reviewed (BP and HR WNL: 166/64 and 60) QTc Review QTc: Reviewed (No EKG on file) IV to PO Switch IV Medications: Reviewed Home Meds Home Med List reviewed: Reviewed Relevent Home Meds Not ordered & why?: Allopurinol (order was put in and then canceled), amlodipine (on hold due to low-normal blood pressures), losartan (on hold due to low-normal blood pressures), nitroglycerin (PRN) Current Meds Current Medication Order Review: Intervened Comments: added IV admission order set
--- NOTE | 2023-12-16 12:02 | PGE_ITS ---
Date of Service Date of service: 12/16/23 Time of Service: 12:02 Assessment and Plan Assessment and plan (1) Declining functional status: Status: Acute Assessment and plan: -has been ongoing for the last year while patient was living in [place] and dealing with chronic pancreatitis that has resulted in pancreas enzyme dysfunction and enzymatic replacement -there is also a likely component of depression that has furthered functional decline and PO intake, see below. -He has an extensive medical history including psych, cardiac, chronic steroids, and hypothyroid and we don't have many details, still waiting for records from [place]. -Carvedilol dose reduced from 25mg to 12.5mg BID 12/13 to improve energy as BP has been running low. See below re: his heart disease. It is possible he was simply overmedicated due to less need for BP meds after his weight loss. -appreciate PT consult, continue to work with PT. -discussed with patients' family; ongoing discussions with Care Management and meeting with Palliative Care regarding appropriate disposition. SNF vs swing, then transition to home health. (2) WILLIAM (acute kidney injury): Status: Acute Assessment and plan: -secondary to poor PO intake as noted above -Cr 4.1 on admission, we don't know baseline but has CKD per son. -improved to 2.4 by 12/14 with hydration, now off IV fluids.. -Getting records from [place] to define his baseline. He may need phosphate binders, calcitriol, EPO. (3) Protein calorie malnutrition: Status: Acute Assessment and plan: -secondary to chronic pancreatitis and exocrine pancreatic insufficiency as well as poor PO intake -Resumed home pancreatic enzymes Creon 12/14, stools improved. (4) Pulmonary fibrosis, postinflammatory: Status: Acute Assessment and plan: exam with some dry rales c/w chest x-ray on admission. He is not hypoxic or in respiratory distress. Should have evaluation as outpatient including chest CT if this hasn't been already worked up, home records pending. (5) Anemia: Status: Chronic Assessment and plan: Normocytic, likely CKD component but multifactorial. With poor nutrition status ordered B12 and iron/tibc, confirmed transferrin saturation low at 14%. Given significant anemia, will give IV iron. Goal transferrin saturation is 20%, assuming hgb still <10 at that point, he should get EPO. No signs of acute blood loss. On MVI so getting folate. (6) Hypomagnesemia: Status: Acute Assessment and plan: With loose stool, which has improved. replaced IV, now normal (7) Hypothyroid: Assessment and plan: getting high dose supplement. Recheck TSH low but high normal fT4, will given he is already on a high dose, will not change for now. I suspect he was not taking his levothyroxine appropriately as an outpatient so he may actually need less once this comes to steady state. (8) Depression: Assessment and plan: he is on buproprion SR just in the morning and lorazepam. I changed lorazepam to prn as this medication raises risk of fall and cognitive impairment. I added scheduled mirtazipine to help with sleep and appetite, he requested lorazepam 12/13 but not 12/14. Continue low dose mirtazipine qhs. (9) Heart disease: Assessment and plan: We are requesting records from [place] to clarify cardiac/vascular history. We don't have a echocardiogram, so I think prudent to repeat ECG and echocardiogram given his generalized weakness and softer blood pressures despite holding some of his home antihypertensives. (10) COPD (chronic obstructive pulmonary disease): Assessment and plan: per daughter uses tiotropium at home, resumed 12/14. Subjective Subjective Patient reports: no new complaints and voiding w/o difficulty; denies diarrhea, blood in stool, nausea or vomiting Interval history since last seen: Worked with PT 12/13 and 12/14, declining this morning. He still feels tired. No chest pain or shortness of breath. Has had a cough for 3 weeks. Exam Narrative Exam Narrative: Tired appearing, chronically ill-appearing older gentleman sitting up on side of bed in no acute distress, ANO x 4, heart regular rhythm with 1/6 systolic murmur at RUSB, no radiation. Lungs clear to auscultation bilaterally except mild dry rales in bilateral bases, a little more in left. abdomen active BS, soft, nontender, nondistended. Extremities no cyanosis or edema. Objective Last Vital Signs Temp 37.2 C 12/16/23 07:24 Pulse 60 12/16/23 07:24 Resp 17 12/16/23 07:24 BP 116/64 12/16/23 07:24 Pulse Ox 95 12/16/23 07:24 Laboratory Results - last 24 hr 12/15/23 12:25 Sodium 139 Potassium 3.9 Chloride 107 Carbon Dioxide 22.0 Anion Gap 10.0 BUN 63 H Creatinine 2.4 H Est GFR (CKD-EPI 2020) 27.28 Glucose 117 H Calcium 8.5 Magnesium 1.9 Iron 15 L TIBC 111 L Transferrin % Sat 14 L Ferritin 385 Vitamin B12 1196 H TSH 16.57 H Free T4 1.43 Time Spent with Patient Time Spent with Patient: 35-49 minutes Time was spent: preparing to see the patient(eg.review tests), obtaining and/or reviewing separately otained hiistory, ordering medications,tests, procedures, referring, communicating with other health emergency care tech, indepentently interpreting results, counseling the patient and care coordination
--- NOTE | 2023-12-16 12:15 | RT.EKG_ITS ---
APPROVED REPORT Exam: Resting ECG Reason for Exam: history of CAD, afib?, general weakness, low BP Patient Location: I HR:60 bpm ECG Measurements Heart Rate 60 AXIS KS 218 P 0 QRSd 149 QRS -52 QT 478 T [id number] QTc 478 Conclusion Ventricular-paced rhythm Biventricular paced rhythm...non-simultaneous bi-vent pacing
[2023-12-16] MEDS: oxyCODONE 5 MG TAB PO (14:21)
[2023-12-16] MEDS: Acetaminophen 500 MG TAB 1000 MG PO (14:49)
[2023-12-16 14:59] VITALS: BP 118/65; PULSE 60; RESP 17; TEMP 37; O2SAT 93
--- NOTE | 2023-12-16 15:23 | PDOC.CMPRO ---
Date of service: 12/16/23 Time of Service: 17:05 Care Management Progress Note Progress Note Text Progress Note Text: Gerry was lying in bed when CM entered the room, he received a phone call from Gerry and requested CM to leave the room. Gerry received bed offers [facility]; CM to offer bed and coordinate discharge. CM continues to follow. Discharge Potential Discharge Needs: PT Evaluation Anticipated Barriers to Discharge: Bed availability Patient/Family Education Needs: Review discharge instructions, discuss Ask Me Three Transportation: Private vehicle Plan: Anticipate Gerry will discharge to SNF when ready per MD, he will transport via private vehicle with his daughter; plan to be reviewed with Gerry and his daughter tomorrow, 12/17/23. CM following. SDOH(Care Management) Screening Will the Patient Participate in the Screening?: Yes Do you worry about having a steady place to live?: no Problems where you live: other In the past 12 months, have you had to go without electric, gas, oil or water in your home?: no Have you or anyone in your house had to go without enough food to eat?: no Has lack of transportation kept you from medical appointments or from doing things needed for daily living?: no Has anyone in your support network made you feel unsafe for any reason?: no Social Determinants of Health Comments(SDOH Details): Patient relocated within the last week to be closer to family
--- NOTE | 2023-12-16 16:28 | PT.INNT ---
PT Notes Visit Reasons: Weakness, WILLIAM Patient was at testing this morning and was not available for treatment. This afternoon, Nurse Katty and daughter reported worsening pain in abdominal area that needed closed monitoring. When PT came in daughter was present in room and requested that his father be allowed to sleep as he finally has been able to rest from pain since this morning. She is okay with PT coming back tomorrow morning for another session and was agreeable to holding off today.
[2023-12-16 20:20] VITALS: BP 110/58; PULSE 60; RESP 18; TEMP 37.6; O2SAT 97
[2023-12-16] MEDS: Atorvastatin 40 MG TAB 80 MG PO (20:30)
[2023-12-16] MEDS: LORazepam 1 MG TAB PO (20:31)
[2023-12-16] MEDS: Mirtazapine 15 MG TAB 7.5 MG PO (20:31)
[2023-12-16 23:34] VITALS: BP 121/52; PULSE 60; RESP 21; TEMP 37.1; O2SAT 94
[2023-12-17 07:29] VITALS: PULSE 60; RESP 20; TEMP 36.9; O2SAT 91
[2023-12-17] MEDS: Tiotropium Bromide-Respimat 10 PUFF INH 2 PUFF IH (08:44)
[2023-12-17 08:47] VITALS: O2SAT 93
--- NOTE | 2023-12-17 09:05 | W.PM.PROGNOT ---
Date of Service Date of service: 12/17/23 Time of Service: 09:08 Assessment and Plan Assessment and plan (1) Declining functional status: Status: Acute Assessment and plan: -has been ongoing for the last year while patient was living in [place] and dealing with chronic pancreatitis that has resulted in pancreas enzyme dysfunction and enzymatic replacement -there is also a likely component of depression that has furthered functional decline and PO intake, see below. -He has an extensive medical history including psych, cardiac, chronic steroids, and hypothyroid, portal information has helped fill in the details but we still don't have full history. -Carvedilol dose reduced from 25mg to 12.5mg BID 12/13 to improve energy as BP has been running low. See below re: his heart disease. It is possible he was simply overmedicated due to less need for BP meds after his weight loss. -appreciate PT consult, continue to work with PT. -He has been accepted by SNF, but with ongoing concern for delerium and refusing care I don't think he is ready today. (2) WILLIAM (acute kidney injury): Status: Acute Assessment and plan: -secondary to poor PO intake prior to admission. -Cr 4.1 on admission, we don't know baseline but has CKD per son. -improved to 2.4 by 12/14 with hydration, off IV fluids for a day at that point -today his oral intake and u/o down and he looks dry, getting labs, bladder scan, 500ml bolus of LR, but his Cr is stable. -Per labs we have from [place], previous recent Cr 1.8->4 (after CT), so he appears to be near his baseline. -He may need phosphate binders, calcitriol, EPO. (3) Protein calorie malnutrition: Status: Acute Assessment and plan: -secondary to chronic pancreatitis and exocrine pancreatic insufficiency as well as poor PO intake -Resumed home pancreatic enzymes Creon 12/14, loose stools improved. (4) Pulmonary fibrosis, postinflammatory: Status: Acute Assessment and plan: exam with some dry rales c/w fibrosis on chest x-ray on admission. He is not hypoxic or in respiratory distress, though trend in O2 sat is down and cough persists. CT would be useful, ordered today w/o contrast. (5) Anemia: Status: Chronic Assessment and plan: Normocytic, likely CKD component but multifactorial. With poor nutrition status ordered B12 and iron/tibc, confirmed transferrin saturation low at 14%. Given significant anemia, will giving IV iron. Goal transferrin saturation is 20% so he can get EPO for anemia of CKD. No signs of acute blood loss. On MVI so getting folate. H/h stable today (6) Hypothyroid: Assessment and plan: getting high dose supplement. Recheck TSH low but high normal fT4, given he is already on a high dose, will not change for now. I suspect he was not taking his levothyroxine appropriately as an outpatient so he may actually need less once this comes to steady state. (7) Depression: Assessment and plan: he is on buproprion SR just in the morning and lorazepam. I changed lorazepam to prn as this medication raises risk of fall and cognitive impairment. I added scheduled mirtazipine to help with sleep and appetite, he requested lorazepam last night again. I will stop mirtazipine as it hasn't clearly helped and go to a lower dose of lorazepam. (8) Heart disease: Assessment and plan: CAD s/p CABG verified on his records as well as pacer. Afib also on previous records, though rhythm now is paced. Echo and EKG 12/15 both reassuring. I don't think cardiac disease is playing into his weakness. (9) COPD (chronic obstructive pulmonary disease): Assessment and plan: Uses tiotropium at home, resumed 12/14. (10) Acute delirium: Status: Acute Assessment and plan: Sounds like he has had intermittent confusion and declining self care since before moving up here 1-2 weeks ago, but getting more notable. I don't see signs of acute infection or organ dysfunction. He can't get MRI but I will get CT head. This may be a manifestation of his declining nutritional status and change in environment. Case d/w family and Dr. Barrios from palliative, follow. Subjective Subjective Patient reports: denies diarrhea, nausea, vomiting or fever Interval history since last seen: Events: Episode of epigastric pain 12/15 after eating lunch, treated with oxycodone Refusing labs, medications, and food this morning. Missed PT 12/15 due to abdominal pain. Echocardiogram and ECG done, reassuring Received IV iron Met with Daughter Mary 12/15, portal information reviewed. She is concerned about waxing/waining mental status, confusion, feels he is worse than when he came in No urine output documented overnight Denies pain this morning. Denies shortness of breath, but still coughing. Exam Narrative Exam Narrative: Tired appearing, pale, chronically ill-appearing older gentleman sitting up on side of bed in no acute distress, alert. MM dry, no icterus. heart regular rhythm with 1/6 systolic murmur at RUSB, no radiation. Lungs with slight wheeze anteriorly, dry rales in bilateral bases, higher up on left lung field. Normal effort.. abdomen active BS, soft, nontender, nondistended. Extremities no cyanosis or edema. Objective Last Vital Signs Temp 36.9 C 12/17/23 07:29 Pulse 60 12/17/23 07:29 Resp 20 12/17/23 07:29 BP 121/52 L 12/16/23 23:34 Pulse Ox 93 12/17/23 08:47 Laboratory Results - last 24 hr 12/17/23 05:35 Hgb Cancelled Hct Cancelled Sodium Cancelled Potassium Cancelled Chloride Cancelled Carbon Dioxide Cancelled Anion Gap Cancelled BUN Cancelled Creatinine Cancelled Est GFR (CKD-EPI 2020) Cancelled Glucose Cancelled Calcium Cancelled Time Spent with Patient Time Spent with Patient: >50 minutes Time was spent: preparing to see the patient(eg.review tests), obtaining and/or reviewing separately otained hiistory, ordering medications,tests, procedures, referring, communicating with other health pharmacist critical care, indepentently interpreting results and care coordination
--- NOTE | 2023-12-17 09:10 | PT.INTREAT ---
PT Notes Visit Reasons: Weakness, WILLIAM Inpatient Physical Therapy Treatment Note [facility] Date: 12/17/23 PRECAUTIONS:Standard OBJECTIVE: Therapeutic Activities (26096g[]): Direct one-on-one instruction in dynamic activities to improve functional performance. ? BED MOBILITY/TRANSFERS? Supine-sit: Modx1? Sit-supine: Modx1? Sit-stand: CGAx2? Stand-sit: CGAx2 ? Provided skilled cues and instruction on performance and technique throughout. Gait Training (90820u[]): Direct one-on-one instruction and skilled instruction in: GAIT? Assistive Device: []? Weight bearing: [] Assist: [] ? Distance:? [] ? Deviation: [] ? STAIRS:[] ? Therapeutic Exercises (09974j[]): Direct one-on-one instruction in therapeutic exercises to develop strength, endurance, range of motion and flexibility. ? Exercises ? Ref too tired. Ambulation ? Assistive Device: FWW? Weight bearing: Full Assist: CGAx2 ? Distance:? Standing to fatigue approx 1 min ? ASSESSMENT:? Pt required mod assist with bed transfers. Max x2 for scooting to the right. Pt fatigued very quickly. PLAN: Cont as per PT POC. TREATMENT CODE/TIME: 8:50-9:10 (20) TE
--- NOTE | 2023-12-17 09:12 | PDOC.CMPRO ---
Date of service: 12/17/23 Time of Service: 09:12 Care Management Progress Note Progress Note Text Progress Note Text: Gerry was awake and lying in bed when CM met with him. SNF for STR is being considered and he has bed offers at [facility] and [facility] [employer] . Gerry wants to discuss his options with his daughter. CM called [facility] and is awaiting a return call. At this time, he is not medically ready per provider and has been refusing care. Palliative is meeting with patient this afternoon to discuss goals of care. Discharge planning continues, CM following Discharge Anticipated Barriers to Discharge: None Identified Patient/Family Education Needs: Review discharge instructions, discuss Ask Me Three Transportation: Private vehicle Plan: SNF for STR vs. Home with Hospice services (Palliative is reviewing goals of care with patient and family 12/17/23). Bed offers have been made by [facility] and [facility]. Discharge planning continues. Transportation will be dependent on disposition and mobility level at time of discharge. Patient is currently unable to get out of bed. SDOH(Care Management) Screening Will the Patient Participate in the Screening?: Yes Do you worry about having a steady place to live?: no Problems where you live: other In the past 12 months, have you had to go without electric, gas, oil or water in your home?: no Have you or anyone in your house had to go without enough food to eat?: no Has lack of transportation kept you from medical appointments or from doing things needed for daily living?: no Has anyone in your support network made you feel unsafe for any reason?: no Social Determinants of Health Comments(SDOH Details): Patient relocated within the last week to be closer to family
[2023-12-17 09:48] LABS: Lactate 1.4 mmol/L (0.6-1.4)
[2023-12-17] MEDS: Pantoprazole 40 MG TABCR PO (09:48)
[2023-12-17 09:49] LABS: HCT 29.5 % (40.0-50.0); MCHC 30.5 % (32.0-36.0); MCV 92 fL (80-95); MPV 10.1 fL (8.0-11.0); Platelet Count 169 10^3/uL (130-400); RBC 3.22 10^6/uL (4.36-5.78); RDW 20.2 % (11.8-14.1); RDW-SD 66.7 fL; WBC 9.75 10^3/uL (4.4-10.8)
[2023-12-17 09:50] LABS: Lab Add On Test DONE
[2023-12-17] MEDS: predniSONE 1 MG TAB 2 MG PO (09:52)
[2023-12-17] MEDS: Multivitamin w/Minerals TAB 1 TAB PO (09:52)
[2023-12-17] MEDS: buPROPion-CR 100 MG TABCR 200 MG PO (09:52)
[2023-12-17] MEDS: predniSONE 5 MG TAB PO (09:53)
[2023-12-17] MEDS: Apixaban 5 MG TAB PO ×2 (09:53→20:24)
[2023-12-17] MEDS: Levothyroxine 200 MCG TAB PO (09:54)
[2023-12-17] MEDS: Levothyroxine 25 MCG TAB PO (09:55)
[2023-12-17] MEDS: Normal Saline Flush 10 ML SYR IVP (10:00)
[2023-12-17] MEDS: Lactated Ringers 500 ML 125 ML IV (10:01)
[2023-12-17 10:04] VITALS: BP 99/54; PULSE 60; RESP 16; O2SAT 94
[2023-12-17 10:10] LABS: ALT 28 U/L (16-63); AST 29 U/L (15-37); Albumin 1.6 g/dL (3.4-5.0); Alkaline Phosphatase 103 U/L (46-116); Anion Gap 11.9 mmol/L (3-11); BUN 62 mg/dL (7-18); Bilirubin, Direct 0.3 mg/dL (0.0-0.2); Bilirubin, Total 0.69 mg/dL (0.2-1.0); CO2 20.1 mmol/L (21.0-32.0); CREATININE 2.4 mg/dL (0.70-1.30); Calcium 8.5 mg/dL (8.5-10.1); Chloride 111 mmol/L (98-107); Estimated GFR 27.28 (mL/min/1.73m2); Glucose 83 mg/dL (74-106); Lipase 18 U/L (16-77); Potassium 3.8 mmol/L (3.5-5.1); Sodium 143 mmol/L (136-145); Total Protein 5.9 g/dL (6.4-8.2)
[2023-12-17 10:30] LABS: Absolute Neutrophil Count 6.73 10^3/uL (1.2-6.7); Bands % 6 %
[2023-12-17 10:31] LABS: Absolute Lymphocyte Count 2.34 10^3/uL (1.2-3.4); Absolute Monocyte Count 0.49 10^3/uL (0.1-0.8); Anisocytosis 2+; Atypical Lymphocytes % 2 %; Diff Comment Manual Differential; Poikilocytes 2+
--- NOTE | 2023-12-17 13:14 | W.PALPGNOTE ---
Date of service: 12/17/23 Time of Service: 13:39 Assessment and Plan Assessment and plan (1) Encounter for palliative care: Status: Acute Assessment and plan: Patient is a 78-year-old gentleman who lives in [place] has struggled with abdominal pain felt to be due to chronic pancreatitis compounded by weight loss and progressive weakness over the last year. There is a question of a pancreatic mass but has had 3 biopsies which have only revealed necrotic tissue. It sounds like he has been followed closely by GI team at [facility] with at least 3 ERCPs. I am not sure whether or not he was taking pancreatic enzyme replacements but he has been receiving them since arrival here. He was moved up to [place] by his children and hopes that they would be able to care for him and turn his decline around, but he needed to be brought to the ER with severe dehydration and WILLIAM within a week of arriving here. I found him today to show signs of delirium/encephalopathy, not oriented, unable to remember even short-term what I told him. Also dozed off during our encounter. He does not have capacity to make advance care planning decisions at this time. Therefore we reconvened a family meeting with daughter Mary present in person and daughter Codie and son Gerry attending via phone. We discussed goals of care, reviewed his advance directive and who was healthcare agent. Given that patient does not have capacity, I felt that it was appropriate for Gerry and Mary, with help from patient's daughter Gladis, to make treatment decisions at this time. We reviewed his hospital stay up till now. They shared with me additional history from [place] and Mary was able to show me a few notes from patient's portal from [facility]. Explained my findings that patient appeared to have delirium/encephalopathy and possible causes of this as well. Explained what I meant by the fact that he did not currently have capacity to make decisions. Goals of care: Family all agreed that they think he would want to go to subacute rehab to at least start a trial of trying to get stronger and regrouping. Understand that there is some underlying process going on that has led to this 1 year decline, and despite a lot of investigation and intervention at a highly regarded tertiary care medical institution, if still not been able to figure out what is going on. Family seems to understand this. However they would still like to give a trial of subacute rehab once patient is stable enough to leave [facility]. This also aligns with the discussion that Bhavya Jewell, palliative care SLOTTER OPERATOR, was able to have with the patient about 4 days ago. Discussed the Alternative option of comfort focused treatment only, likely hopsice. Explained and descriibed. THey feel trail of OFELIA best aligns with their dad's wishes. Advance care planning: Patient had discussion with Bhavya Jewell NP last week and want to be a full code but not be intubated. Bhavya recorded these as an order but did not fill out a COLST sheet and commented that she would need to sort this out further with patient. Family reports that patient has always said he never ever wants to be on a ventilator. Apparently this is a very specific fear of his. We discussed the procedure of CPaR, actual mechanical process, rate of success in restoring heartbeat, short and long-term side effects in survivors (including likely decreased physical and cognitive functioning). Questions were answered. My concern is that the patient has had significant decline over the year and has declined further over the last month. I am concerned that should he suffer cardiac arrest, in the unlikely event that his pulse is restored, he would never recover enough to be able to live on his own with his dog, which is his goal. Son Gerry and daughter Gladis feel clearly that if their father, in his right mind as he was a year ago, was sitting with him in the room, he would not want CPR. However daughter Mary feels that he would want to at least have a chance to come back to how he was a week ago. Additional discussion ensued: The group decided that we would leave him full code right now. They agree that if he had a cardiac arrest, he would have to be intubated if needed to run the code. However if he had only a respiratory arrest, he would not be intubated. They are going to talk about this some months himself. They welcomed another family meeting with Bhavya Jewell palliative medicine SLOTTER OPERATOR, with all of them present In person, this Saturday, December 19, 2023. Total of 46 minutes or more spent today on Advance Care Planning. Patient and family participated voluntarily. Advance care planning may include (not limited to) explanation and discussion of advance directives, choosing and appointing healthcare agents, alternatives to various ACP tools, discussion of (and if indicated, completion of) COLST form, discussion of patient's values and overall goals for treatment, palliative and disease directive care options, ways to avoid hospital readmission including hospice discussions, care preferences should the patient's several other adverse health events. See today's palliative care note for additional information. this note was dictated using speech recognition software. Attempt was made at proofreading, but errors may be present. Please call with questions. E (2) Advanced care planning/counseling discussion: Status: Acute (3) Declining functional status: Status: Acute (4) WILLIAM (acute kidney injury): Status: Acute (5) Acute delirium: Status: Acute (6) Anemia: Status: Chronic (7) Current chronic use of systemic steroids: (8) Chronic pancreatitis: Status: Acute (9) Pancreatic mass: Status: Acute (10) DNI (do not intubate): Status: Acute Subjective Subjective Interval history since last seen: Gerry Garcia is a 78 yo man with idiopathic chronic pancreatitis, with a complex medical history over the last year, managed at [facility] with records not available to us in general at this time. History today from daughter Mary who is present in the hospital. Additional information from hospitalist notes. Mary is able to show me some notes and reports and test results from patient's portal from [facility]. Daughter Mary reports that he started having acute and then chronic pancreatitis a little over a year ago. Over this time he has had pancreatic duct stented at least 3 times. Initial stenting helped improve his symptoms. Unfortunately he continued to have pain with eating and had been avoiding eating and drinking to try and stave off this pain. He is lost significant amount of weight over the last year. She cannot quantitate this. About 3 months ago in September he had an episode similar to this where he became very weak and kidney tests were increased and felt to be dehydrated. However she is very clear that he was not confused at that time. He went to the hospital, get IV hydration, she thinks they did another ERCP and replaced a stent. Continued post prandial pain. Of note I see that he had endoscopy as well as ERCP during this September visit and he did have some bleeding from his gastric mucosa. He did receive some iron infusions at that time. They never did figure out what caused this episode.He went home after signing out AMA (he has signed out AMA several times in the past). but continued to decline He has been living on his own [facility] in his own home with his dog. He continued to get weaker. Mary rivera lives in [facility], went and stayed with him for a while, but he was not able to eat more. They finally decided altogether that he would move up to live with daughter Codie in [place] and drove him up here. He arrived in [place] about a week and a half before [facility] admission. Patient became so weak and could no longer get out of bed and his family brought him to [facility] ED.. He was admitted to [facility] 12/11/2023 (6 days ago). ED evaluation found him to be severely dehydrated with BUN of 78 and creatinine of 4.1 (baseline creatinine 1.9), as well as anemia. Workup otherwise without clear-cut precipitating factor. Past medical history (as per H&P note) includes chronic pancreatitis (reportedly taking Creon, history of duct stenting), ASCVD (status post CABG, pacemaker placed, atrial fibrillation on DOAC, no history of CHF), history of depression/mental health issues, on chronic steroids, hypothyroidism, hypertension. After reviewing patient's problem list in my chart, additionally has lower extremity arterial stenting (popliteal artery stent 2016), femoropopliteal bypass (2017), continues to smoke cigarettes, history of GERD, TIA 1997, affective personality disorder , psoriatic arthritis, polymyalgia rheumatica, anemia, gout, LISBETH (status post uvulectomy), peripheral artery disease and chronic congestive heart failure. WHen he eats, it causes Pain, and therefore he does not like to eat. Why on Prednisone? Both PMR and Psoriasis on [facility] problem List. Mental Health Hx: Daughter says he has a history of depression but no history of being hospitalized,no history of suicidal ideation. No history of EtOH or other substance abuse. Care Team: Primary Care physician:Unknown He had been seeing gastroenterology at [facility]. Social HX: Marital StatusDivorced about 15 yrs ago Occupation: Retired [employer] for [employer] Children: Daughter Gladis, Daughter Mary(alternate HCA), Son Gerry Oropeza (HCA) Hobbies:HAs not been able to engage in many of his older hobbiesover the ast year. Enjoys: reading, watching TV, watching birds out the window, smoking. Additional Services: Impression of currents health status: Seems to be quite bad: but improved quickly. Over the last months has it been getting better worse or the same? Getting a lot better. What bothers you the most:Tangential answer, denies he is bothered by pain at this time. What worries you the most: Goals: Daughter and son report that his goal would be to return to independent living, living with his dog, enjoying reading, watching TV and watching the birds. Mary and son Gerry's goal for their dad is that he be able to eat, be able to return to independent living, and no longer have pain. Also that he no longer be confused.goals for him Current information preferences: Function:Unable to query, was living alone until about a month ago, but tenuously Ambulation: ADLs: iADLs: Hearing: Vision: Cognition: Family has not seen confusion until this admission. He does change his mind often (about treatment, about whether or not to take meds, about whether or not to stay in hospital) Falls: Driving:Was driving until about 3 weeks ago Palliative Performance Scale % Ambulation Activity and Evidence of Disease Self Care Intake Level of Consciousness 100 Full Normal activity, no evidence of disease Full Normal Full 90 Full Normal activity, some evidence of disease Full Normal Full 80 Full Normal activity with effort, some evidence of disease Full Normal or reduced Full 70 Reduced Unable to do normal work, some evidence of disease Full Normal or reduced Full 60 Reduced Unable to do hobby or some housework, significant disease Occasional assist necessary Normal or reduced Full or confusion 50 Mainly sit/lie Unable to do any work, extensive disease Considerable assistance required Normal or reduced Full or confusion 40 Mainly in bed Unable to do any work, extensive disease Mainly assistance Normal or reduced Full, drowsy, or confusion 30 Totally bed bound Unable to do any work, extensive disease Total care Reduced Full, drowsy, or confusion 20 Totally bed bound Unable to do any work, extensive disease Total care Minimal sips Full, drowsy, or confusion 10 Totally bed bound Unable to do any work, extensive disease Total care Mouth care only Drowsy or coma 0 - - - - Patient Score: 50 Spiritual history:Not muslim Palliative review of systems: Pain:Children report postprandial pain chronically over the last year Dyspnea: GI symptoms: Appetite: Depression: Anxiety: None Emotional Distress: Spiritual/Existential Distress: Labs: Cr: Leveling out at 2.4 (4.1 at admission, previous baseline reported 2.1) Liver panel: Normal, lipase normal Albumin: 1.6 CBC: Hemoglobin 9.0, normal ferritin, low transferrin percent saturation and serum iron with low TIBC (consistent with anemia of chronic disease) Advanced Care Planning: Advanced Directive: 2 page AD read on daughter's phone. THey will bring in copyy, lists HCA Health Care Agent: Primary HCA is son Gerry Oropeza ([place], [place]), Seconday is Mary Chandra (who is currently in town staying at [facility] but lives in [place]. COLST: As per chart, reportedly completed with Bhavya Jewell NP on 12/13/2023, not yet scanned in. Reportedly patient wanted no intubation but did want to have CPR and other aspects of cardiopulmonary resuscitation. Limitations: Exam Narrative Exam Narrative: Pale and sleeepy, dozes off twords the end of my visit, Orientation: July , winter. Year ? I don't know. TOld correct answers: asked again you said it is the end of November, and it could be any year. Where are you? State: [place]..... City: no answer ;Type of place: boarding school. Told answer: Asked again: Don't know. Startles easily. Daughter had noted some myoclonus of upper extremities over the last few days. Objective Last Vital Signs Temp 36.9 C 12/17/23 07:29 Pulse 60 12/17/23 10:04 Resp 16 12/17/23 10:04 BP 99/54 L 12/17/23 10:04 Pulse Ox 94 12/17/23 10:04 Laboratory Results - last 24 hr 12/17/23 12/17/23 12/17/23 05:35 09:40 09:40 WBC 9.75 RBC 3.22 L Hgb Cancelled 9.0 L Hct Cancelled 29.5 L MCV 92 MCH 28.0 MCHC 30.5 L RDW 20.2 H Plt Count 169 MPV 10.1 Immature Gran % 0.0 Neutrophils % 63.0 Band Neutrophils % 6 Lymphocytes % 22.0 Atypical Lymphs % 2 Monocytes % 5.0 Eosinophils % 2.0 Basophils % 0.0 Nucleated RBC % 0.0 Absolute Neutrophils 6.73 H Absolute Lymphocytes 2.34 Absolute Monocytes 0.49 Absolute Eosinophils 0.20 Absolute Basophils 0.00 RBC Morphology See Below Poikilocytosis 2+ Anisocytosis 2+ VBG Lactate 1.4 Sodium Cancelled 143 Potassium Cancelled 3.8 Chloride Cancelled 111 H Carbon Dioxide Cancelled 20.1 L Anion Gap Cancelled 11.9 H BUN Cancelled 62 H Creatinine Cancelled 2.4 H Est GFR (CKD-EPI 2020) Cancelled 27.28 Glucose Cancelled 83 Calcium Cancelled 8.5 Total Bilirubin 0.69 Cancelled Conjugated Bilirubin 0.3 H AST ALT Alkaline Phosphatase Total Protein Albumin Lipase Add-On Test Request 12/17/23 12/17/23 12/17/23 09:40 09:40 09:40 WBC RBC Hgb Hct MCV MCH MCHC RDW Plt Count MPV Immature Gran % Neutrophils % Band Neutrophils % Lymphocytes % Atypical Lymphs % Monocytes % Eosinophils % Basophils % Nucleated RBC % Absolute Neutrophils Absolute Lymphocytes Absolute Monocytes Absolute Eosinophils Absolute Basophils RBC Morphology Poikilocytosis Anisocytosis VBG Lactate Sodium Potassium Chloride Carbon Dioxide Anion Gap BUN Creatinine Est GFR (CKD-EPI 2020) Glucose Calcium Total Bilirubin Conjugated Bilirubin Cancelled AST 29 Cancelled ALT 28 Cancelled Alkaline Phosphatase 103 Total Protein Albumin Lipase Add-On Test Request 12/17/23 12/17/23 12/17/23 09:40 09:40 09:40 WBC RBC Hgb Hct MCV MCH MCHC RDW Plt Count MPV Immature Gran % Neutrophils % Band Neutrophils % Lymphocytes % Atypical Lymphs % Monocytes % Eosinophils % Basophils % Nucleated RBC % Absolute Neutrophils Absolute Lymphocytes Absolute Monocytes Absolute Eosinophils Absolute Basophils RBC Morphology Poikilocytosis Anisocytosis VBG Lactate Sodium Potassium Chloride Carbon Dioxide Anion Gap BUN Creatinine Est GFR (CKD-EPI 2020) Glucose Calcium Total Bilirubin Conjugated Bilirubin AST ALT Alkaline Phosphatase Cancelled Total Protein 5.9 L Cancelled Albumin 1.6 L Cancelled Lipase 18 Add-On Test Request DONE
[2023-12-17 15:27] VITALS: BP 98/51; PULSE 60; RESP 20; TEMP 36.9; O2SAT 93
--- NOTE | 2023-12-17 16:38 | CHAPLAIN ---
Gerry recently moved from [place] to be closer to family the [facility]. He lives with a daughter in [place]. [place]. Gerry said he is very tired and not sleeping well. His daughter, Mary, who is vising from [place], said Gerry has been sleeping a lot of the time. I introduced myself, explained my role and offered support.
--- NOTE | 2023-12-17 16:46 | PT.INNT ---
PT Notes Visit Reasons: Weakness, WILLIAM Patient with increased confusion and worsening weakness, has had very poor oral intake. Family requested with holding off on phsyical therapy this afternoon, hoping that he could continue to participate in session tomorrow morning. Dr. Teran consulted and is in agreement of plan.
[2023-12-17 20:20] VITALS: BP 115/51; PULSE 61; RESP 22; TEMP 37; O2SAT 95
[2023-12-17] MEDS: Atorvastatin 40 MG TAB 80 MG PO (20:25)
[2023-12-17 23:42] VITALS: BP 103/55; PULSE 60; RESP 18; TEMP 36.6; O2SAT 97
--- NOTE | 2023-12-18 | DI.CT_ITS ---
Exam(s) CT CHEST WO EXAM: CT CHEST WO CLINICAL HISTORY: fibrosis on chest x-ray, exam. Cr 2.4 TECHNIQUE: Imaging Protocol: Axial computed tomography images with coronal and sagittal reformatted images were created and reviewed CONTRAST MATERIAL: Noncontrast COMPARISON: CR XR CHEST 1V IN DI DEPT from 12/11/2023 FINDINGS: Exam limited by motion. Pulmonary parenchyma: Limited evaluation due to respiratory motion. Underlying mild to moderate emph ysematous changes and moderate to severe fibrotic changes. Patchy bilateral ground-glass infiltrates could indicate superimposed pneumonitis which may be viral. No focal consolidation. No dominant m easurable mass. Tracheobronchial tree: Not well evaluated due to motion. Main bronchi are clear. Mediastinum and Mirtha: No dominant adenopathy or fluid collection. Pleura: Moderate size right pleural effusion. Small left pleural effusion. No pneumothorax. Heart: Enlarged, particularly left ventricle. Status post CABG. Pacemaker. No pericardial effusion . Aorta: Thoracic aorta non-dilated. Mild to moderate atherosclerotic changes. Upper abdomen: Large quantity of ascites. Bones: Sternal wires.Degenerative changes in the spine. Soft tissues: Mild bilateral gynecomastia. IMPRESSION: Consistent limited by motion. Underlying emphysematous and fibrotic changes. Superimposed bilateral ground-glass infiltrates. Bilateral pleural effusions. Large quantity of ascites. RADIATION DOSE DELIVERED: 603.2mGy.cm Total DLP DATA REPOSITORY: All CT scans at this facility are submitted to the National Radiology Data Registry (NRDR) Dose Index Registry (DIR) with the [employer] (ACR). RADIATION OPTIMIZATION: All CT scans at this facility use at least one of these dose optimization te chniques: automated exposure control; mA and/or kV adjustment per patient size (includes targeted exa ms where dose is matched to clinical indication); or iterative reconstruction.
--- NOTE | 2023-12-18 | DI.CT_ITS ---
Exam(s) CT HEAD WO EXAM: CT HEAD WO CLINICAL HISTORY: confusion, anticoagulated. TECHNIQUE: Imaging Protocol: Axial computed tomography images with coronal and sagittal reformatted images were created and reviewed COMPARISON: CT CT HEAD WO from 12/11/2023 FINDINGS: Ventricles and Extra axial spaces: Normal in size and morphology for the patient's age. Hemorrhage: None. Cerebral parenchyma: No evidence of acute infarct or mass. Mild atrophy. Mild white matter changes small vessel disease. Midline shift: None. Brainstem/Cerebellum: Normal. Calvarium: Normal. Visualized Paranasal sinuses:Clear. Mastoids: Clear. Soft Tissues: Unremarkable. ORBITS: Unremarkable. PITUITARY: Not enlarged. IMPRESSION: No acute intracranial process. RADIATION DOSE DELIVERED: 677.81mGy.cm Total DLP DATA REPOSITORY: All CT scans at this facility are submitted to the National Radiology Data Registry (NRDR) Dose Index Registry (DIR) with the [employer] (ACR). RADIATION OPTIMIZATION: All CT scans at this facility use at least one of these dose optimization te chniques: automated exposure control; mA and/or kV adjustment per patient size (includes targeted exa ms where dose is matched to clinical indication); or iterative reconstruction.
[2023-12-18] MEDS: Levothyroxine 25 MCG TAB PO (05:40)
[2023-12-18] MEDS: Levothyroxine 200 MCG TAB PO (05:40)
[2023-12-18 07:59] VITALS: BP 126/55; PULSE 59; RESP 18; TEMP 36.8; O2SAT 95
[2023-12-18] MEDS: Tiotropium Bromide-Respimat 10 PUFF INH 2 PUFF IH (08:25)
[2023-12-18] MEDS: Pantoprazole 40 MG TABCR PO (08:37)
[2023-12-18] MEDS: predniSONE 1 MG TAB 2 MG PO (08:37)
[2023-12-18] MEDS: Multivitamin w/Minerals TAB 1 TAB PO (08:37)
[2023-12-18] MEDS: Carvedilol 12.5 MG TAB 6.25 MG PO (08:37)
[2023-12-18] MEDS: Apixaban 5 MG TAB PO (08:38)
[2023-12-18] MEDS: buPROPion-CR 100 MG TABCR 200 MG PO (08:38)
[2023-12-18] MEDS: predniSONE 5 MG TAB PO (08:39)
[2023-12-18] MEDS: Normal Saline Flush 10 ML SYR IVP ×2 (08:43→12:11)
--- NOTE | 2023-12-18 09:02 | PDOC.CMPRO ---
Date of service: 12/18/23 Time of Service: 09:02 Care Management Progress Note Progress Note Text Progress Note Text: Gerry was sitting in his recliner watching TV when CM met with him. Gerry is medically ready for discharge and agrees to SNF for STR. CM had a long talk with him today about his need work hard with PT and get nutrition. This afternoon he appears much more motivated to get to rehab. Gerry worked with PT this afternoon and walked 5 steps before needing to sit and was able to do this 3 times. Per PT, he is still very weak but a lot better than 2 days ago. Still recommending SNF. He has bed offers at [facility] and [facility]. CM is awaiting a call back from his daughter Gladis. Discharge Anticipated Barriers to Discharge: None Identified Patient/Family Education Needs: Review discharge instructions, discuss Ask Me Three Transportation: Facility Transport Plan: SNF for STR vs. Home with Hospice services, if elegible. At this time, pt is seeking SNF for STR and motivated to work with PT. Bed offers have been made by [facility], [facility], [facility] and the [facility] is reviewing. Transport will be dependent on disposition. Awaiting a call back from Daughter Gladis. SDOH(Care Management) Screening Will the Patient Participate in the Screening?: Yes Do you worry about having a steady place to live?: no Problems where you live: other In the past 12 months, have you had to go without electric, gas, oil or water in your home?: no Have you or anyone in your house had to go without enough food to eat?: no Has lack of transportation kept you from medical appointments or from doing things needed for daily living?: no Has anyone in your support network made you feel unsafe for any reason?: no Social Determinants of Health Comments(SDOH Details): Patient relocated within the last week to be closer to family
--- NOTE | 2023-12-18 09:21 | NUR.NOTE ---
Nursing Note: pt was cooperative and pleasant until residential through head to toe. Pt became overwhelmed and refused any further assessment, will reassess. Heart Sounds were regular but diminished and hard to hear under the lung sounds. Bilateral lung sounds - rales. SPARKLE sounds were the least course. Pt had family member in room who stated that the pt was moved here from [place] by car 2 weeks ago. Family stated that Pt was moved closer to family because his health was failing alone, but he has continued to decline since moving.
--- NOTE | 2023-12-18 14:07 | PT.INTREAT ---
PT Notes Visit Reasons: Weakness, WILLIAM Physical Therapy Inpatient Treatment Note Date: 12/18/2023 Precautions: Fall. Standard. Activity as tolerated. Subjective: Tired and fatigued but willing to try walk and move with PT. Needed help with changing his clothes as he spilled water accidentally. Agreeable with going to SNF to regain his strength prior to going home to his daughter's house. Needed help with putting slippers on. Objective: General Observation: Needed to be changed and cleaned from having soiled his underpants. NANCY Todd assisted. Mental Status: Alert. Able to follow single step commands. Pain: None reported Vital Signs: Closely monitored by nursing staff Bed Mobility/Transfers: Minimal cueing provided for use of B hands as needed for support, movement sequence, AD management, and posture to reduce fall risk and minimize pain report Rolling minimal assist Supine to sit moderate assist with HOB at 45 degrees, needed help with scooting forward at edge of bed Sit to stand moderate assist using FWW Stand to sit minimal assist using FWW Bed to toilet seat with minimal assist using FWW Gait: Facilitated safe and the performance of level surface ambulation covering a distance of 7 steps + 10 steps + steps using front-wheeled walker with minimal assist and close wheelchair follow of PT for safety. Step to gait pattern. Step length and step height decreased. Reported fatigue after short activity. Verbal cueing provided for posture, head management, and movement sequence. Yara decreased. Balance: Static Sitting: Normal Dynamic Sitting: Normal Static Standing: Fair Dynamic Standing: Poor Informed Consent/Education: Patient was instructed in purpose of PT consult and plan of care. Agreeable to continue with established PT POC to achieve personal goals. ASSESSMENT: Patient continues to require assistance not only with mobility performance but with self-care ADLs as well. He will benefit from continued PT/OT services to address functional impairments. Patient's activity tolerance still low but better compared to very limited ability with movement due to abdominal pain and continued decrease in oral intake. He is again back with slowly participating in therapy and working on imprveing mobility level, strength, balance and activity tolerance. Preferred to rest after waling activity due to fatigue and weakness. Goals: Goals X1 week 1. Supine-Sit independent 2. Sit-Supine independent 3. Sit-Stand independent 4. Stand-Sit independent with FWW 5. Bed-Chair independent with FWW 6. Chair-Bed independent with FWW 7. Independent gait on level surface with use of FWW for at least 300 feet without report of pain nor dyspnea 8. Independent with home exercise program 9. Good static and dynamic standing balance/tolerance Plan of Care/Treatment Plan: 1-2x/day, 7 days/week x 1 week. Plan of care has been reviewed with the [employer] providing the service under Physical Therapy direction. Initiate Physical Therapy intervention for pain management as needed, strengthening, bed mobility, transfers, gait, stairs, balance training, and use of assistive device. DISCHARGE RECOMMENDATIONS: [] Home with no services [] [] Home with services [specify] [] Home with outpatient PT [] [] SNF for continued rehabilitation [] [] Track [facility] Head [facility] [] [] SNF versus LTC based on ability to participate and progress [] [X] Short-term SNF for mobility, strength, and balance progression before discharge to home TREATMENT CODE/TIME: 20420 x 26 minutes for 2 units (13:24?13:50).
--- NOTE | 2023-12-18 14:50 | CMDISCH_ITS ---
Date of service: 12/18/23 Time of Service: 14:50 LACE Index Scoring Tool Questions: Length of Stay (in days): 7 - 13 Was the patient admitted via the E.D.?: Yes Comorbidities: Liver or Renal Disease E.D. Visits: 1 Answers: Total Score: 14 Risk of Readmission: High Risk Care Management Discharge Plan Reason for Hospitalization: Weakness, WILLIAM Discharge Plan: Gerry is discharge to [facility] for STR. Pt will follow up with community/facility providers and his discharge plan of care. Palliative will follow and recommend establishing a local PCP in the near future. Patient/Family Education Needs: Review discharge instructions, limitations and plan to follow up with Palliative. Services Needed at Discharge: Longterm Facility ([facility]) and Transportation ([facility], coordinated by CM) SDOH Health Related Social Needs: Health related social needs risk of homeless, transpo insecurity Health related social needs: housing instability, housed, with risk of homelessness(Z59.811) (Gerry was living in [place] and recently moved to the area due to his health care needs. He resides with his Daughter Gladis in [facility] ) and transportation insecurity(Z59.82) (Family provides transportation.)
--- NOTE | 2023-12-18 14:53 | DSE_ITS ---
Date of service: 12/18/23 Time of Service: 14:53 DS: Diagnosis Discharge Diagnosis (1) Encounter for palliative care: Status: Acute (2) Advanced care planning/counseling discussion: Status: Acute (3) Declining functional status: Status: Acute (4) WILLIAM (acute kidney injury): Status: Acute (5) Acute delirium: Status: Acute (6) Anemia: Status: Chronic (7) Current chronic use of systemic steroids: (8) Chronic pancreatitis: Status: Acute (9) Pancreatic mass: Status: Acute (10) DNI (do not intubate): Status: Acute (11) Protein calorie malnutrition: Status: Acute (12) Pulmonary fibrosis, postinflammatory: Status: Acute (13) Hypothyroid: (14) Depression: (15) Heart disease: (16) COPD (chronic obstructive pulmonary disease): Discharge Plan Disposition Patient Disposition: [facility](SNF) Condition: Fair Discharge Details Reason For Visit: Weakness, WILLIAM Admit Date/Time: 12/11/23 20:02 Admit Provider: Jayden De La Cruz Attending Provider: Jayden De La Cruz Primary Care Provider: Sri,Local Hospital Course Hospital Course: 78 yo M with CAD s/p CABG, PAD s/p revascularization, recent former smoking, h/o atrial fibrillation, h/o PMR on chronic prednisone, COPD, depression, and multiple recent hospitalizaitons for pancreatitis related to pancreatic mass/cysts without malignancy but requiring ductal stent who presented with progressive weakness after his family drove him up from where he was living in [place]. His initial evaluation was significant for clinical dehydration and a creatinine of 4.1. His renal function improved with hydration, but he continued to have waxing and waning energy levels and confusion. His creatinine came down and leveled out at 2.4. Previous baseline was around 1.8-2 (though was >4 most recently after contrast CT). He did have waxing/waning orientation and energy levels during his admission consistent with delerium. This was going on prior to moving up to [place], started after multiple hospitalizations for pancreatic disease, but worse per family. He had a negative head CT on 12/17. There were not signs of infection. This was felt to be related to his chronic pancreatic inflammation and poor nutritional status. Medications were reviewed and lorazepam dose decreased and made prn. He had occaisional abdominal pain during his week of admission, but not daily. Pain was treated with oral oxycodone. His lipase was negative on admission and again 12/16 after he had some abdominal pain. Ascites was noted on CT chest w/o on the morning of discharge, but his abdominal exam was benign and his last significant abdominal pain was 12/15. He had some cough but was not short of breath or hypoxic. The x-ray and CT w/o contrast of the chest did show fibrosis. He has COPD and multiple nodules listed on his problem list, but it was unclear this represented a new process. Given minimal acute symptoms consideration of pulmonary consult was deferred to outpatient. Cardiac assessment was done given his cardiac rehab and general weakness. EKG did not suggest ischemia, echocardiogram showed normal LVEF and no significant valvular disease. His blood pressures were on the low side during admission. His losartan and amlodipine was held and not restarted. His carvedilol was decreased from 25mg to 12.5mg to 6.25mg BID. nursing home, he may be better off on losartan as a single agent, though he does have a history of atrial fibrillation as well so that is an indication for beta blockade. Even at the lower dose of carvedilol, the pulse was paced at 60bpm. His TSH was high but fT4 was normal. Given his high dose, it was felt he may have been not taking his levothyroxine properly when he was living alone. TSH w/reflex should be followed and repeated in about a month. His buproprion was continued for depression. His HS lorazepam was made prn and he was trialed on mirtazipine for sleep. This didn't seem to help his mental status, so mirtazipine was stopped and lorazepam decreased from 1mg to 0.5mg as needed. His magnesium was low and was supplumented IV. Anemia was stable, associated with CKD. Iron studies showed transferrin saturation of 14%, which is improved from previous levels. He did get one dose of IV iron. Oral iron prescribed upon discharge. He did work with physical therapy and SNF recommended for ongoing PT. Home Meds and New Rx's Prescriptions: New ferrous sulfate [Iron (ferrous sulfate)] 325 mg (65 mg iron) tablet 325 mg PO DAILY Qty: 30 2RF carvedilol 12.5 mg Tablet 6.25 mg PO BID Qty: 0 0RF prednisone 5 mg Tablet 5 mg PO DAILY Qty: 0 0RF acetaminophen 500 mg Tablet 1,000 mg PO Q8H PRN PRNQty: 0 0RF prednisone 1 mg Tablet 2 mg PO DAILY Qty: 0 0RF lorazepam 1 mg Tablet 0.5 mg PO HS PRN PRN (Reason: Anxiety) Qty: 15 0RF alum-mag hydroxide-simeth 400-400-40 mg/5 mL Suspension 15 ml PO Q3H PRN PRNQty: 0 0RF oxycodone 5 mg Tablet 5 mg PO Q6H PRN PRNQty: 10 0RF Spiriva Respimat 2.5 mcg/actuation Mist 2 puff inhalation DAILY Qty: 0 0RF Patient's Own Medication 1 ea PO PRN PRNQty: 0 0RF Patient's Own Medication 2 ea PO QMEALS Qty: 0 0RF Continued allopurinol 300 mg tablet 300 mg PO DAILY atorvastatin [Lipitor] 80 mg tablet 80 mg PO QHS bupropion HCl 100 mg tablet sustained-release 12 hr 200 mg PO DAILY carvedilol 25 mg tablet 25 mg PO BID Rx Instructions: must administer with a meal/food Eliquis 5 mg tablet 5 mg PO BID levothyroxine [Euthyrox] 200 mcg tablet 200 mcg PO DAILY levothyroxine [Euthyrox] 25 mcg tablet 25 mcg PO DAILY multivit with min-folic acid [One-A-Day Men's Pro Edge] 0.4 mg tablet See Rx Instructions PO .COMPLEX Rx Instructions: orally daily; nitroglycerin [Nitrostat] 0.4 mg tablet, sublingual 0.4 mg sublingual Q5-15M PRN Rx Instructions: do not exceed 3 doses per episode pantoprazole 40 mg tablet,delayed release (DR/EC) 80 mg PO DAILY prednisone 5 mg tablet 5 mg PO DIRECTED Rx Instructions: see taper instructions Discontinued amlodipine 5 mg tablet 5 mg PO DAILY lorazepam [Ativan] 1 mg tablet 1 mg PO QHS losartan [Cozaar] 100 mg tablet 100 mg PO DAILY Discharge Instructions Instructions: Chronic Pancreatitis (DC) Stand Alone Forms: Nursing Discharge Form Activity:: Activity as Tolerated Equipment/Supplies:: No Equipment Needed Diet:: protein shake supplumentation Discharge Orders Discharge Orders: Discharge Order (Routine); Ordered 12/18/23 Ordered By: Gerry Teran DS: Summary Time Spent with Patient providing and/or coordinating discharge services: Greater than 30 minutes Status at Discharge Functional status at discharge: uses cane/walker Overall status at discharge: patient is not back to baseline Mental Status: mental status grossly normal Speech and Movement: speech and movement normal Mood: congruent mood Affect: normal affect Quality:SDOH Health Related Social Needs: Health related social needs risk of homeless, transpo insecurity Exam Narrative Exam Narrative: chronically ill-appearing older gentleman sitting in bed in no acute distress, alert, oriented x 3 today (family in room). Heart regular rhythm with 1/6 systolic murmur at RUSB, no radiation. Lungs, slight dry rales in bilateral bases, more on left, no wheeze, normal effort. Abdomen active BS, soft, nontender, nondistended. Extremities no cyanosis or edema. Psych Mental Status: mental status grossly normal Speech and Movement: speech and movement normal Mood: congruent mood Affect: normal affect DS: Data Vitals/I&O Vitals and I&O: Vital Signs Temperature 36.8 C 12/18/23 07:59 Temperature Source Tympanic 12/18/23 07:59 Pulse 59 L 12/18/23 07:59 Pulse Rhythm Regular 12/18/23 08:55 Respiratory Rate 18 12/18/23 07:59 Respiratory Effort Normal, Non-Labored 12/18/23 08:55 Respiratory Depth Normal 12/18/23 08:55 Respiratory Pattern Normal 12/18/23 08:55 Blood Pressure 126/55 L 12/18/23 07:59 Blood Pressure Position Sitting 12/11/23 15:18 Pulse Oximetry 95 12/18/23 07:59 Oxygen Delivery Method Room Air 12/18/23 07:59 Oxygen Flow Rate 0 12/18/23 07:59 Fraction of Inspired Oxygen (FIO2) 21 12/16/23 09:34 Pain Level 7 12/18/23 07:59 Comment refused VS. Yelled at me. 12/17/23 07:08 Intake & Output 12/17/23 12/18/23 12/18/23 23:59 11:59 23:59 Intake Total 870 / 870 400 / 400 Balance 870 / 870 400 / 400 Intake: IV 500 / 500 Oral 370 / 370 400 / 400 Other: Urine Color Yellow Yellow Urine Appearance Clear Urine Odor Normal Normal Stool Size Copious Small Small Stool Characteristics Soft Liquid Liquid Brown Voiding Methods Bedside Commode Toilet PFSH All Active Problems (Updated 12/18/23 @ 14:52 by Gerry Teran) DNI (do not intubate) (Acute) Pt is terrified of being on ventilation. But wants CPR. Family advises: can intubate if needed for CPR. If respiratory failure only, do not intubate. Pancreatic mass (Acute) Chronic pancreatitis (Acute) Acute delirium (Acute) Advanced care planning/counseling discussion (Acute) Encounter for palliative care (Acute) Hypomagnesemia (Acute) Anemia (Chronic) Pulmonary fibrosis, postinflammatory (Acute) Protein calorie malnutrition (Acute) WILLIAM (acute kidney injury) (Acute) Declining functional status (Acute) Weakness (Acute) Dehydration (Acute) Medical History (Updated 12/18/23 @ 14:52 by Gerry Teran) Current chronic use of systemic steroids a/w h/o PMR H/O polymyalgia rheumatica Paroxysmal atrial fibrillation COPD (chronic obstructive pulmonary disease) Peripheral arterial disease Heart disease Pancreatic pseudocyst/cyst Depression Gout Chronic kidney disease Hypothyroid Surgical History S/P placement of cardiac pacemaker S/P CABG (coronary artery bypass graft) Social History Smoking/Tobacco Use Status: Never Smoking risk assessment performed?: Yes Alcohol Intake: current Alcohol Intake frequency: holidays/special occasions only Substance use type: does not use Housing: other Time Spent with Patient Time Spent with Patient: 45-69 minutes Time was spent: preparing to see the patient(eg.review tests), obtaining and/or reviewing separately otained hiistory, ordering medications,tests, procedures, referring, communicating with other health home health care case manager, indepentently interpreting results and care coordination
[2023-12-18 15:44] VITALS: BP 116/65; PULSE 63; RESP 18; TEMP 36.7; O2SAT 92
== END 2023-12-18 15:57 | disposition skilled nursing facility (03) | DRG 683 ==
LOC: ER 19:19 → MS 21:05
PROVIDERS: Family Medicine; Admitting Provider General Practice; Emergency Provider Emergency Medicine; Visit Provider General Practice
DX: N17.9 Acute kidney failure, unspecified; E46 Unspecified protein-calorie malnutrition; K86.1 Other chronic pancreatitis; F05 Delirium due to known physiological condition; E86.0 Dehydration; R53.1 Weakness; J84.10 Pulmonary fibrosis, unspecified; Z68.24 Body mass index [BMI] 24.0-24.9, adult; D64.9 Anemia, unspecified; E83.42 Hypomagnesemia; F32.A Depression, unspecified; J44.9 Chronic obstructive pulmonary disease, unspecified; Z51.5 Encounter for palliative care; Z79.52 Long term (current) use of systemic steroids; I95.9 Hypotension, unspecified; K86.81 Exocrine pancreatic insufficiency; Z96.89 Presence of other specified functional implants; Z95.1 Presence of aortocoronary bypass graft; Z95.0 Presence of cardiac pacemaker
CPT/HCPCS: 00123; 36415; 36416; 71250; 80048; 80053; 80076; 82962; 83690; 85027; 86850; 86900; 86901; 94640; 96360; 96361; 97110; 97163; 97530; 99285; 99498; 70450; 71045; 72170; 81003; 82607; 82728; 83540; 83550; 83605; 83735; 84439; 84443; 85014; 85018; 85025; 85610; 85730; 93005; 93010; 93306; 94664; 94760; 99222; 99232; 99233; 99239; J1756; J3475; J7042; J7512